=== PATIENT | male | born 1940 | race Caucasian/White ===

== ENCOUNTER 2016-04-23 10:09 | Outpatient (CLI) | payer MEDICARE, BC ==
[2016-04-23 11:28] LABS: ALT (SGPT) Less than 6 U/L (0-55); AST (SGOT) 23 U/L (5-34); Albumin 3.9 g/dL (3.4-4.8); Alkaline Phosphatase 80 U/L (40-150); Anion Gap 14 mmol/L (10-20); BUN (Urea Nitrogen) 19 mg/dL (8.4-25.7); Bilirubin, Direct 0.4 mg/dL (0.1-0.3); Calc. Creatinine Clearance 0 mL/min (70-130); Carbon Dioxide 27 mmol/L (23-31); Chloride 103 mmol/L (98-107); Cholesterol 132 mg/dL (< 200 Desired); Estimated GFR-MDRD 64; Glucose 115 mg/dL (83-110); HDL Cholesterol 44 mg/dL (>60 Neg Risk); LDL Cholesterol, Calculated 73 mg/dL; Potassium 3.8 mmol/L (3.5-5.1); Protein, Total 6.7 g/dL (5.8-8.1); Sodium 140 mmol/L (136-145); Triglycerides 75 mg/dL (Less than 150)
== END 2016-04-23 10:10 ==
LOC: MADLABBHPM 10:09
PROVIDERS: ATTEND Family Medicine
DX: E78.5 Hyperlipidemia, unspecified (principal); I10 Essential (primary) hypertension
CPT/HCPCS: 36415; 80048; 80061; 80076

== ENCOUNTER 2016-07-29 08:41 | Outpatient (CLI) | payer MEDICARE, BC ==
[2016-07-29 09:28] LABS: ALT (SGPT) 14 U/L (0-55); AST (SGOT) 18 U/L (5-34); Albumin 4.2 g/dL (3.4-4.8); Alkaline Phosphatase 100 U/L (40-150); Anion Gap 15 mmol/L (10-20); BUN (Urea Nitrogen) 21 mg/dL (8.4-25.7); Bilirubin, Direct 0.4 mg/dL (0.1-0.3); Bilirubin, Total 1.1 mg/dL (0.2-1.2); Calc. Creatinine Clearance 0 mL/min (70-130); Carbon Dioxide 26 mmol/L (23-31); Cardiac Risk 3.9 (Less than 4.5); Chloride 102 mmol/L (98-107); Cholesterol 162 mg/dL (< 200 Desired); Estimated GFR-MDRD 58; Glucose 120 mg/dL (83-110); HDL Cholesterol 42 mg/dL (>60 Neg Risk); LDL Cholesterol, Calculated 96 mg/dL; Protein, Total 7.3 g/dL (5.8-8.1); Sodium 139 mmol/L (136-145); Triglycerides 119 mg/dL (Less than 150)
== END 2016-07-29 08:42 | disposition home or self-care (01) ==
LOC: MADLABBHPM 08:41
PROVIDERS: ATTEND Family Medicine
DX: I10 Essential (primary) hypertension (principal)
CPT/HCPCS: 36415; 80048; 80061; 80076

== ENCOUNTER 2016-10-01 09:45 | Inpatient (IN) | payer MEDICARE, BC ==
[2016-10-01] MEDS ORDERED: Loperamide HCl 2 MG CAP ONE (10:57)
[2016-10-01 11:25] LABS: ALT (SGPT) Less than 6 U/L (8-55); AST (SGOT) 10 U/L (5-34); Albumin 3.6 g/dL (3.4-4.8); Alkaline Phosphatase 85 U/L (40-150); Anion Gap 13 mmol/L (10-20); BUN (Urea Nitrogen) 22 mg/dL (8.4-25.7); Bilirubin, Total 1.3 mg/dL (0.2-1.2); Calc. Creatinine Clearance 0 mL/min (70-130); Calcium 8.6 mg/dL (7.8-10.44); Carbon Dioxide 26 mmol/L (23-31); Chloride 102 mmol/L (98-107); Estimated GFR-MDRD 71; Globulin 3.1 g/dL (2.4-3.5); Glucose 99 mg/dL (83-110); Potassium 4.3 mmol/L (3.5-5.1); Protein, Total 6.7 g/dL (5.8-8.1); Sodium 137 mmol/L (136-145)
[2016-10-01 11:35] LABS: Band 5 % (5-11); Hemoglobin 15.2 g/dL (14.0-18.0); Lymphocytes 20 % (21-51); MDiff Complete? YES; Mean Corpuscular HGB CONC 32.3 g/dL (32.0-36.0); Mean Corpuscular Hemoglobin 29.1 pg (27.0-31.0); Mean Platelet Volume 7.5 fL (7.4-10.4); Monocytes 8 % (0-10); Neutrophil 67 % (42-75); PLT Morphology Comment Appears Adequate; Platelet Count 136 thou/uL (130-400); RBC Distribution Width 13.2 % (11.5-14.5); Red Blood Cell (RBC) Count 5.22 mill/uL (4.70-6.10); White Blood Cell (WBC) Count 5.5 thou/uL (4.8-10.8)
[2016-10-01 12:00] LABS: Bilirubin Negative (Negative); Blood, Urine Negative (Negative); Clarity Clear (Clear); Glucose, Urine (Dipstick) Negative (Negative); Leukocyte Negative (Negative); Nitrite Negative (Negative); Protein, Urine (Dipstick) 30 mg/dL (Neg-Trace); RBC/HPF 0-3 HPF (0-3); Specific Gravity, Urine 1.025 (1.005-1.030); Squamous Epithelial 0-3 HPF (0-3); Urobilinogen 0.2 mg/dL (0.2-1.0); WBC/HPF 0-3 HPF (0-3)
[2016-10-01 12:01] LABS: Bacteria/HPF Rare-Few HPF (None Seen)
[2016-10-01] MEDS ORDERED: Ondansetron HCl/PF 4 MG/2 ML Vial SLOW IVP PRN (13:09)
[2016-10-01] MEDS ORDERED: Acetaminophen 650 MG Suppository PR PRN (13:09)
[2016-10-01] MEDS ORDERED: Ondansetron ODT 4 MG TAB PO PRN (13:09)
[2016-10-01] MEDS ORDERED: Acetaminophen 325 MG TAB PO PRN (13:11)
[2016-10-01] MEDS: Dextrose 5 % And 0.9 % NaCl 1,000 ML IV SCH ×2 (13:22→21:24)
[2016-10-01 13:59] VITALS: BMI 18.8
[2016-10-01] MEDS: Carbidopa/Levodopa 25-100 mg Tablet PO SCH ×2 (16:45→19:37)
[2016-10-01] MEDS: Terazosin HCl 1 MG CAP PO SCH (20:44)
[2016-10-01] MEDS: Atorvastatin Calcium 10 MG TAB PO SCH (20:44)
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
[2016-10-02 05:28] LABS: Anion Gap 12 mmol/L (10-20); BUN (Urea Nitrogen) 14 mg/dL (8.4-25.7); Calc. Creatinine Clearance 62 mL/min (70-130); Calcium 8.1 mg/dL (7.8-10.44); Carbon Dioxide 24 mmol/L (23-31); Chloride 106 mmol/L (98-107); Estimated GFR-MDRD 84; Glucose 121 mg/dL (83-110); Sodium 138 mmol/L (136-145)
[2016-10-02] MEDS: Enoxaparin Sodium 40 MG/0.4 ML SYRINGE SC SCH (05:34)
[2016-10-02 05:39] LABS: Hemoglobin 14.1 g/dL (14.0-18.0); Mean Corpuscular HGB CONC 33.8 g/dL (32.0-36.0); Mean Corpuscular Hemoglobin 30.4 pg (27.0-31.0); Mean Corpuscular Volume 89.9 fl (80.0-94.0); Mean Platelet Volume 7.7 fL (7.4-10.4); Platelet Count 122 thou/uL (130-400); RBC Distribution Width 13.2 % (11.5-14.5); Red Blood Cell (RBC) Count 4.65 mill/uL (4.70-6.10); White Blood Cell (WBC) Count 4.9 thou/uL (4.8-10.8)
[2016-10-02 05:40] LABS: Manual Diff?? YES
[2016-10-02 05:41] LABS: Eosinophils 1 % (0-10); Lymphocytes 20 % (21-51); Monocytes 3 % (0-10); Reactive Lymphocytes 11 % (0-10)
[2016-10-02 05:43] LABS: Metamyelocyte 1 % (0-0)
[2016-10-02 05:44] LABS: PLT Morphology Comment Appears Decreased; RBC Morphology Normal
[2016-10-02] MEDS: Dextrose 5 % And 0.9 % NaCl 1,000 ML IV SCH (05:48)
[2016-10-02 06:04] LABS: MDiff Complete? YES
[2016-10-02 06:05] LABS: Neutrophil 64 % (42-75)
[2016-10-02] MEDS: Carbidopa/Levodopa 25-100 mg Tablet PO SCH ×5 (06:05→19:27)
[2016-10-02] MEDS ORDERED: Dextrose 5 % And 0.9 % NaCl 1000 ml Bag ONE (06:15)
[2016-10-02] MEDS: Rasagiline Mesylate [Rasagiline Mesylate] 1 MG PO SCH (08:01)
[2016-10-02] MEDS: Aspirin 81 mg Enteric Coated Tablet PO SCH (08:01)
[2016-10-02] MEDS ORDERED: Atorvastatin Calcium 10 MG TAB PO SCH (09:00)
[2016-10-02] MEDS: Sodium Chloride 0.9% 1,000 ML IV SCH (12:35)
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
[2016-10-02] MEDS: Atorvastatin Calcium 10 MG TAB PO SCH (20:25)
[2016-10-02] MEDS: Terazosin HCl 1 MG CAP PO SCH (20:26)
[2016-10-03] MEDS: Sodium Chloride 0.9% 1,000 ML IV SCH (04:57)
[2016-10-03] MEDS: Enoxaparin Sodium 40 MG/0.4 ML SYRINGE SC SCH (04:58)
[2016-10-03 05:20] LABS: Band 1 % (5-11); Eosinophils 2 % (0-10); Hemoglobin 13.6 g/dL (14.0-18.0); Lymphocytes 8 % (21-51); MDiff Complete? YES; Mean Corpuscular HGB CONC 33.2 g/dL (32.0-36.0); Mean Corpuscular Hemoglobin 29.8 pg (27.0-31.0); Mean Corpuscular Volume 89.6 fl (80.0-94.0); Mean Platelet Volume 7.2 fL (7.4-10.4); Monocytes 3 % (0-10); Neutrophil 53 % (42-75); PLT Morphology Comment Appears Adequate; Platelet Count 134 thou/uL (130-400); RBC Distribution Width 13.3 % (11.5-14.5); Reactive Lymphocytes 33 % (0-10); Red Blood Cell (RBC) Count 4.58 mill/uL (4.70-6.10); White Blood Cell (WBC) Count 4.7 thou/uL (4.8-10.8)
[2016-10-03 05:23] LABS: Anion Gap 12 mmol/L (10-20); BUN (Urea Nitrogen) 11 mg/dL (8.4-25.7); Calc. Creatinine Clearance 64 mL/min (70-130); Calcium 8.1 mg/dL (7.8-10.44); Carbon Dioxide 25 mmol/L (23-31); Cardiac Risk 2.7 (Less than 4.5); Chloride 105 mmol/L (98-107); Cholesterol 95 mg/dl (< 200 Desired); Estimated GFR-MDRD 86; Glucose 93 mg/dL (83-110); HDL Cholesterol 35 mg/dL (>60 Neg Risk); LDL Cholesterol, Calculated 45 mg/dL; Potassium 3.8 mmol/L (3.5-5.1); Sodium 138 mmol/L (136-145); Triglycerides 74 mg/dL (Less than 150)
[2016-10-03] MEDS: Carbidopa/Levodopa 25-100 mg Tablet PO SCH ×5 (06:11→19:20)
[2016-10-03] MEDS: Aspirin 81 mg Enteric Coated Tablet PO SCH (08:32)
[2016-10-03] MEDS: Rasagiline Mesylate [Rasagiline Mesylate] 1 MG PO SCH (09:00)
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
[2016-10-03] MEDS ORDERED: Sodium Chloride 0.9% 1,000 ML BAG ONE (10:19)
[2016-10-03] MEDS: Terazosin HCl 1 MG CAP PO SCH (20:41)
[2016-10-03] MEDS: Atorvastatin Calcium 10 MG TAB PO SCH (20:41)
[2016-10-04] MEDS: Enoxaparin Sodium 40 MG/0.4 ML SYRINGE SC SCH (05:22)
[2016-10-04] MEDS: Carbidopa/Levodopa 25-100 mg Tablet PO SCH ×3 (06:15→12:56)
[2016-10-04] MEDS: Aspirin 81 mg Enteric Coated Tablet PO SCH (09:06)
[2016-10-04] MEDS: Rasagiline Mesylate [Rasagiline Mesylate] 1 MG PO SCH (09:07)
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
[2016-10-04 11:47] VITALS: BP 162/76; TEMP 98.7
== END 2016-10-04 12:59 | disposition swing bed (61) | DRG 392 ==
LOC: MADERS 09:45 → MADMS 12:10
PROVIDERS: ADMIT Family Medicine; ATTEND Family Medicine
DX: R19.7 Diarrhea, unspecified (principal); G20 Parkinson's disease; F02.81 Dementia in other diseases classified elsewhere, unspecified severity, with behavioral disturbance; I48.2 Chronic atrial fibrillation; R13.10 Dysphagia, unspecified; E86.0 Dehydration; I10 Essential (primary) hypertension; E78.5 Hyperlipidemia, unspecified; N40.0 Benign prostatic hyperplasia without lower urinary tract symptoms; Z04.71 Encounter for examination and observation following alleged adult physical abuse; Z95.0 Presence of cardiac pacemaker; R53.1 Weakness
CPT/HCPCS: 36415; 80048; 80053; 80061; 81001; 85025; 99285; G8978-GP-CL; G8980-GP-CJ; G8987-GO-CM; G8988-GO-CK; J1650; J7042; J7050

== ENCOUNTER 2016-10-03 10:45 | Inpatient (IN) | payer MEDICARE, BC ==
[2016-10-04] MEDS ORDERED: Acetaminophen 325 MG TAB PO PRN (09:17)
[2016-10-04 13:50] VITALS: BMI 18.8
[2016-10-04] MEDS: Carbidopa/Levodopa 25-100 mg Tablet PO SCH ×3 (15:38→21:32)
[2016-10-04] MEDS: Terazosin HCl 1 MG CAP PO SCH (21:32)
[2016-10-04] MEDS: Atorvastatin Calcium 10 MG TAB PO SCH (21:32)
[2016-10-05] MEDS: Enoxaparin Sodium 40 MG/0.4 ML SYRINGE SC SCH (06:30)
[2016-10-05] MEDS ORDERED: RASAGILINE MESYLATE 1 MG PO SCH (09:00)
[2016-10-05] MEDS: Aspirin 81 mg Enteric Coated Tablet PO SCH (10:07)
[2016-10-05] MEDS: Carbidopa/Levodopa 25-100 mg Tablet PO SCH ×5 (10:08→19:56)
[2016-10-05] MEDS: Rasagiline Mesylate 1 MG PO SCH (10:08)
[2016-10-05] MEDS: Atorvastatin Calcium 10 MG TAB PO SCH (19:56)
[2016-10-05] MEDS: Terazosin HCl 1 MG CAP PO SCH (19:57)
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
[2016-10-06] MEDS: Enoxaparin Sodium 40 MG/0.4 ML SYRINGE SC SCH (05:46)
[2016-10-06] MEDS: Carbidopa/Levodopa 25-100 mg Tablet PO SCH ×5 (07:25→19:43)
[2016-10-06] MEDS: Aspirin 81 mg Enteric Coated Tablet PO SCH (08:57)
[2016-10-06] MEDS: Rasagiline Mesylate 1 MG PO SCH (08:58)
[2016-10-06] MEDS: Terazosin HCl 1 MG CAP PO SCH (21:41)
[2016-10-06] MEDS: Atorvastatin Calcium 10 MG TAB PO SCH (21:41)
[2016-10-07] MEDS: Enoxaparin Sodium 40 MG/0.4 ML SYRINGE SC SCH (05:46)
[2016-10-07] MEDS: Carbidopa/Levodopa 25-100 mg Tablet PO SCH ×5 (07:39→20:11)
[2016-10-07] MEDS: Rasagiline Mesylate 1 MG PO SCH (08:44)
[2016-10-07] MEDS: Aspirin 81 mg Enteric Coated Tablet PO SCH (08:44)
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
[2016-10-07] MEDS: Terazosin HCl 1 MG CAP PO SCH (20:11)
[2016-10-07] MEDS: Atorvastatin Calcium 10 MG TAB PO SCH (20:11)
[2016-10-08] MEDS: Enoxaparin Sodium 40 MG/0.4 ML SYRINGE SC SCH (06:09)
[2016-10-08] MEDS: Carbidopa/Levodopa 25-100 mg Tablet PO SCH ×5 (08:00→20:11)
[2016-10-08] MEDS: Aspirin 81 mg Enteric Coated Tablet PO SCH (08:00)
[2016-10-08] MEDS: Rasagiline Mesylate 1 MG PO SCH (08:01)
[2016-10-08] MEDS: Atorvastatin Calcium 10 MG TAB PO SCH (21:18)
[2016-10-08] MEDS: Terazosin HCl 1 MG CAP PO SCH (21:18)
[2016-10-08] MEDS ORDERED: Bisacodyl 10 MG SUPP PR PRN (21:25)
[2016-10-08] MEDS ORDERED: Polyethylene Glycol 3350 17 GM Packet PO SCH (22:15)
[2016-10-09] MEDS: Enoxaparin Sodium 40 MG/0.4 ML SYRINGE SC SCH (05:30)
[2016-10-09] MEDS: Carbidopa/Levodopa 25-100 mg Tablet PO SCH ×5 (08:11→19:14)
[2016-10-09] MEDS: Aspirin 81 mg Enteric Coated Tablet PO SCH (08:11)
[2016-10-09] MEDS: Rasagiline Mesylate 1 MG PO SCH (08:11)
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
[2016-10-09] MEDS: Polyethylene Glycol 3350 17 GM Packet PO SCH (11:58)
[2016-10-09] MEDS: Atorvastatin Calcium 10 MG TAB PO SCH (21:01)
[2016-10-09] MEDS: Terazosin HCl 1 MG CAP PO SCH (21:03)
[2016-10-10] MEDS: Enoxaparin Sodium 40 MG/0.4 ML SYRINGE SC SCH (06:15)
[2016-10-10] MEDS: Carbidopa/Levodopa 25-100 mg Tablet PO SCH ×5 (07:28→19:18)
[2016-10-10] MEDS: Aspirin 81 mg Enteric Coated Tablet PO SCH (08:53)
[2016-10-10] MEDS: Polyethylene Glycol 3350 17 GM Packet PO SCH (08:53)
[2016-10-10] MEDS: Rasagiline Mesylate 1 MG PO SCH (08:54)
[2016-10-10] MEDS: Terazosin HCl 1 MG CAP PO SCH (21:01)
[2016-10-10] MEDS: Atorvastatin Calcium 10 MG TAB PO SCH (21:01)
[2016-10-11] MEDS: Carbidopa/Levodopa 25-100 mg Tablet PO SCH ×3 (06:12→13:34)
[2016-10-11] MEDS: Enoxaparin Sodium 40 MG/0.4 ML SYRINGE SC SCH (06:13)
[2016-10-11] MEDS: Aspirin 81 mg Enteric Coated Tablet PO SCH (08:19)
[2016-10-11] MEDS: Polyethylene Glycol 3350 17 GM Packet PO SCH (08:22)
[2016-10-11] MEDS: Rasagiline Mesylate 1 MG PO SCH (08:22)
[2016-10-11 08:46] VITALS: BP 136/80; TEMP 96.9
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
== END 2016-10-11 12:50 | disposition home health service (06) | DRG 948 ==
LOC: MADMS 10-04 13:05
PROVIDERS: ADMIT Family Medicine; ATTEND Family Medicine
DX: R53.1 Weakness (principal); F02.81 Dementia in other diseases classified elsewhere, unspecified severity, with behavioral disturbance; G20 Parkinson's disease; R44.2 Other hallucinations; I10 Essential (primary) hypertension; R13.10 Dysphagia, unspecified; N40.0 Benign prostatic hyperplasia without lower urinary tract symptoms; E78.5 Hyperlipidemia, unspecified; I48.2 Chronic atrial fibrillation; Z95.0 Presence of cardiac pacemaker; K59.00 Constipation, unspecified
CPT/HCPCS: G8978-GP-CM; G8979-GP-CJ; G8996-GN-CK; G8997-GN-CK; J1650

== ENCOUNTER 2017-05-10 16:52 | Emergency (ER) | payer MEDICARE, BC ==
[~2017-05-10 16:52] MED LIST: Sodium Chloride 0.9% 1,000 ML BAG ONE
--- NOTE | 2017-05-10 18:55 | RAD ---
PORTABLE SUPINE CHEST: 05/10/17 HISTORY: Fever. COMPARISON: 09/07/15. Lungs appear well aerated. No evidence of focal infiltrate or significant effusion. Heart is mildly e nlarged and there is mild vascular engorgement which appears stable. The single lead pacemaker device is unchanged. IMPRESSION: No acute finding or interval change. POS: [facility]
[2017-05-10 19:12] LABS: Bilirubin Negative (Negative); Blood, Urine Moderate (Negative); Clarity Cloudy (Clear); Glucose, Urine (Dipstick) Negative (Negative); Leukocyte Negative (Negative); Nitrite Positive (Negative); Protein, Urine (Dipstick) 100 mg/dL (Neg-Trace); pH, Urine 5.5 (5.0-9.0)
[2017-05-10 19:13] LABS: #Lymphocytes 0.2 thou/uL (1.20-3.40); #Monocytes 0.1 thou/uL (0.11-0.59); #Neutrophils 9.3 thou/uL (1.40-6.50); %Basophils 0.3 % (0.0-1.0); %Eosinophils 0.1 % (0.0-10.0); %Lymphocytes 2.3 % (21.0-51.0); %Monocytes 1.2 % (0.0-10.0); %Neutrophils 96.1 % (42.0-75.0); Hemoglobin 14.8 g/dL (14.0-18.0); Mean Corpuscular HGB CONC 32.9 g/dL (32.0-36.0); Mean Corpuscular Hemoglobin 30.3 pg (27.0-31.0); Mean Corpuscular Volume 91.9 fl (80.0-94.0); Mean Platelet Volume 6.4 fL (7.4-10.4); Platelet Count 160 thou/uL (130-400); RBC Distribution Width 12.8 % (11.5-14.5); Red Blood Cell (RBC) Count 4.89 mill/uL (4.70-6.10); White Blood Cell (WBC) Count 9.7 thou/uL (4.8-10.8)
[2017-05-10 19:22] LABS: Bacteria/HPF 2+ HPF (None Seen); Crystals/HPF 3+ AMORPH URATES HPF (Negative); RBC/HPF 0-3 HPF (0-3); Squamous Epithelial 0-3 HPF (0-3)
[2017-05-10 19:22] LABS: ALT (SGPT) Less than 7 U/L (8-55); AST (SGOT) 14 U/L (5-34); Albumin 3.8 g/dL (3.4-4.8); Alkaline Phosphatase 85 U/L (40-150); Anion Gap 17 mmol/L (10-20); BUN (Urea Nitrogen) 24 mg/dL (8.4-25.7); Bilirubin, Total 2.6 mg/dL (0.2-1.2); CK (CPK) 50 U/L (30-200); Calc. Creatinine Clearance 0 mL/min (70-130); Calcium 8.8 mg/dL (7.8-10.44); Carbon Dioxide 22 mmol/L (23-31); Chloride 104 mmol/L (98-107); Estimated GFR-MDRD 56; Globulin 3.1 g/dL (2.4-3.5); Glucose 166 mg/dL (83-110); Potassium 4.5 mmol/L (3.5-5.1); Protein, Total 6.9 g/dL (5.8-8.1); Sodium 138 mmol/L (136-145)
[2017-05-10 19:24] LABS: CKMB 0.6 ng/mL (0-6.6); Troponin I Less than 0.010 ng/mL (< 0.028)
== END 2017-05-10 21:49 | disposition short-term general hospital (02) ==
LOC: MADERS 16:52
DX: G21.11 Neuroleptic induced parkinsonism (principal); F03.90 Unspecified dementia, unspecified severity, without behavioral disturbance, psychotic disturbance, mood disturbance, and anxiety; I95.89 Other hypotension; I48.91 Unspecified atrial fibrillation; Z95.0 Presence of cardiac pacemaker; N39.0 Urinary tract infection, site not specified; I10 Essential (primary) hypertension; Z79.899 Other long term (current) drug therapy; Z79.82 Long term (current) use of aspirin
CPT/HCPCS: 36415; 51701; 71045; 80053; 81001; 82553; 83605; 83880; 84484; 85025; 87040; 87077; 87081; 87086; 87149; 87186; 87430; 87804; 93005; 96360; J7050

== ENCOUNTER 2017-05-25 04:20 | Emergency (ER) | payer MEDICARE, BC ==
[2017-05-25 05:11] LABS: #Basophils 0.1 thou/uL (0.0-0.2); #Eosinphils 0.1 thou/uL (0.0-0.7); #Monocytes 0.6 thou/uL (0.11-0.59); #Neutrophils 6.1 thou/uL (1.40-6.50); %Basophils 0.9 % (0.0-1.0); %Eosinophils 1.6 % (0.0-10.0); %Lymphocytes 12.6 % (21.0-51.0); %Monocytes 7.2 % (0.0-10.0); %Neutrophils 77.7 % (42.0-75.0); Hemoglobin 14.6 g/dL (14.0-18.0); Mean Corpuscular HGB CONC 32.8 g/dL (32.0-36.0); Mean Corpuscular Hemoglobin 30.3 pg (27.0-31.0); Mean Corpuscular Volume 92.5 fl (80.0-94.0); Mean Platelet Volume 6.1 fL (7.4-10.4); Platelet Count 344 thou/uL (130-400); RBC Distribution Width 13.3 % (11.5-14.5); Red Blood Cell (RBC) Count 4.81 mill/uL (4.70-6.10); White Blood Cell (WBC) Count 7.8 thou/uL (4.8-10.8)
[2017-05-25 05:27] LABS: Bilirubin Negative (Negative); Blood, Urine Moderate (Negative); Clarity Clear (Clear); Glucose, Urine (Dipstick) Negative (Negative); Leukocyte Negative (Negative); Nitrite Negative (Negative); Protein, Urine (Dipstick) Trace mg/dL (Neg-Trace); Specific Gravity, Urine 1.015 (1.005-1.030); Urobilinogen 0.2 mg/dL (0.2-1.0)
[2017-05-25 05:32] LABS: ALT (SGPT) 12 U/L (8-55); AST (SGOT) 47 U/L (5-34); Albumin 3.1 g/dL (3.4-4.8); Alkaline Phosphatase 70 U/L (40-150); Anion Gap 13 mmol/L (10-20); BUN (Urea Nitrogen) 8 mg/dL (8.4-25.7); Bacteria/HPF None Seen HPF (None Seen); Bilirubin, Total 0.7 mg/dL (0.2-1.2); Calc. Creatinine Clearance 0 mL/min (70-130); Calcium 7.9 mg/dL (7.8-10.44); Carbon Dioxide 29 mmol/L (23-31); Chloride 102 mmol/L (98-107); Estimated GFR-MDRD Greater than 90; Globulin 2.9 g/dL (2.4-3.5); Glucose 104 mg/dL (83-110); Potassium 3.5 mmol/L (3.5-5.1); Sodium 140 mmol/L (136-145); Squamous Epithelial 0-3 HPF (0-3)
[2017-05-25 05:46] LABS: CKMB 2.3 ng/mL (0-6.6); Troponin I Less than 0.010 ng/mL (< 0.028)
--- NOTE | 2017-05-25 09:49 | RAD ---
CHEST 1 VIEW: HISTORY: Altered mental status. COMPARISON: 05/10/17. FINDINGS: Cardiac silhouette is magnified and enlarged. Pulmonary vasculature is upper limits of normal. The patient is rotated leftward. Left subclavian cardiac electronic device and aortic calcification are again demonstrated. IMPRESSION: 1. Cardiomegaly. No florid edema. 2. Sclerosis. POS: [facility]
== END 2017-05-25 06:35 ==
LOC: MADERS 04:20
DX: F03.90 Unspecified dementia, unspecified severity, without behavioral disturbance, psychotic disturbance, mood disturbance, and anxiety (principal); N39.0 Urinary tract infection, site not specified; I48.91 Unspecified atrial fibrillation; I10 Essential (primary) hypertension; Z79.82 Long term (current) use of aspirin; Z79.899 Other long term (current) drug therapy
CPT/HCPCS: 71045; 80053; 81003; 81015; 82553; 84484; 85025

== ENCOUNTER 2017-06-02 16:51 | Emergency (ER) | payer MEDICARE, BC ==
[2017-06-02 17:48] LABS: #Basophils 0.1 thou/uL (0.0-0.2); #Monocytes 0.9 thou/uL (0.11-0.59); #Neutrophils 17.1 thou/uL (1.40-6.50); %Basophils 0.3 % (0.0-1.0); %Monocytes 4.5 % (0.0-10.0); %Neutrophils 90.1 % (42.0-75.0); Hemoglobin 13.7 g/dL (14.0-18.0); Mean Corpuscular HGB CONC 31.8 g/dL (32.0-36.0); Mean Corpuscular Volume 94.2 fl (80.0-94.0); Mean Platelet Volume 6.3 fL (7.4-10.4); Platelet Count 276 thou/uL (130-400); RBC Distribution Width 13.9 % (11.5-14.5); Red Blood Cell (RBC) Count 4.57 mill/uL (4.70-6.10); White Blood Cell (WBC) Count 18.9 thou/uL (4.8-10.8)
[2017-06-02 18:02] LABS: ALT (SGPT) Less than 7 U/L (8-55); AST (SGOT) 16 U/L (5-34); Albumin 3.3 g/dL (3.4-4.8); Alkaline Phosphatase 71 U/L (40-150); Anion Gap 16 mmol/L (10-20); BUN (Urea Nitrogen) 16 mg/dL (8.4-25.7); Bilirubin, Total 1.6 mg/dL (0.2-1.2); Calc. Creatinine Clearance 0 mL/min (70-130); Calcium 8.4 mg/dL (7.8-10.44); Carbon Dioxide 24 mmol/L (23-31); Chloride 101 mmol/L (98-107); Estimated GFR-MDRD 66; Globulin 3.1 g/dL (2.4-3.5); Glucose 126 mg/dL (83-110); Potassium 4.4 mmol/L (3.5-5.1); Protein, Total 6.4 g/dL (5.8-8.1); Sodium 137 mmol/L (136-145)
[2017-06-02] MEDS ORDERED: Acetaminophen 500 MG TAB ONE (18:10)
--- NOTE | 2017-06-02 18:30 | RAD ---
PORTABLE AP CHEST RADIOGRAPH: Date: 06-02-17 History: Fever. Comparison: 05-25-17 FINDINGS: Single lead left subclavian cardiac pacemaking device is noted in place. The cardiac silhouette is ma gnified by projection. Pulmonary vasculature is within normal limits. The lungs are clear. Vascular c alcifications are seen in the thoracic aorta. Given differences in technique, there has been no signi ficant interval change when compared to the prior exam. IMPRESSION: No acute cardiopulmonary process. POS: [facility]
[2017-06-02 19:39] LABS: Bilirubin Small (Negative); Blood, Urine Small (Negative); Clarity Slightly Cloudy (Clear); Glucose, Urine (Dipstick) Negative (Negative); Leukocyte Negative (Negative); Nitrite Negative (Negative); Protein, Urine (Dipstick) 100 mg/dL (Neg-Trace); Specific Gravity, Urine 1.015 (1.005-1.030); Urobilinogen 0.2 mg/dL (0.2-1.0); pH, Urine 5.5 (5.0-9.0)
[2017-06-02 19:43] LABS: Bacteria/HPF 2+ HPF (None Seen); Crystals/HPF 1+ AMORPH URATES HPF (Negative); WBC/HPF 0-3 HPF (0-3)
== END 2017-06-02 20:04 | disposition short-term general hospital (02) ==
LOC: MADERS 16:51
DX: A41.9 Sepsis, unspecified organism (principal); A09 Infectious gastroenteritis and colitis, unspecified; I48.91 Unspecified atrial fibrillation; I10 Essential (primary) hypertension; G20 Parkinson's disease; F02.80 Dementia in other diseases classified elsewhere, unspecified severity, without behavioral disturbance, psychotic disturbance, mood disturbance, and anxiety; Z79.899 Other long term (current) drug therapy
CPT/HCPCS: 36415; 71045; 80053; 81003; 81015; 83605; 85025; 87040; 87086; 96365; 96366; J3370; J7050

== ENCOUNTER 2017-06-20 18:12 | Inpatient (IN) | payer MEDICARE, BC ==
[2017-06-20] MEDS ORDERED: Carbidopa/Levodopa CR 50-200 mg Tablet PO SCH (21:30)
--- NOTE | 2017-06-21 00:41 | HP ---
Admitted to [facility] to extended care on 06/20/2017 CHIEF COMPLAINT: Severe weakness. PRESENT ILLNESS: The patient is a frail 77-year-old white male, who has a history of Parkinson's dis ease diagnosed initially in 2001, complicated by dementia, dysphagia, and weakness. He also has hype rtension, chronic atrial fibrillation. The patient is not a candidate for any anticoagulants due to a fall risk. He also has a pacemaker. The patient had been living at home with his serving as his primary caregiver. The patient required some assistance with his ADLs and assistance with all [facility] instrumental ADLs. The patient became acutely ill requiring hospitalization at [facility] from 05/10/2017 to 05/22/2017 presenting with altered mental status and septic s hock from a urinary tract infection. This was complicated by a left ureteral stone with hydronephros is and hydroureter. The patient underwent an emergent placement of a percutaneous nephrostomy tube. Later, his urologist, Dr. Mcgill, did a left ureteroscopic stone basket extraction and removal of [facility] percutaneous nephrostomy, and inserted a left double-J ureteral stent. His urine grew group B stre p and Enterococcus. He also had a fecal impaction with possible proctitis, for which he was treated with Flagyl. The patient had a right internal jugular catheter and was discharged to [facility] on 05/22/2017 on IV ampicillin and Flagyl. The patient completed approximately 3 days of the se 2 antibiotics and then pulled out his internal jugular catheter. His 5-day course of Flagyl and a moxicillin was completed by oral route. He underwent physical therapy and made good progress. He wa s eating well, was able to get up and walk just a few steps. The patient then again became acutely i ll with altered mental status and diarrhea, prompting a re-admission to [facility] from 06/02/2017 to 06/06/2017 and was found to have a C. difficile colitis. The patient w as started on vancomycin 125 mg p.o. q.i.d. The patient's condition stabilized and he improved, such that he was discharged on 06/06/2017. His condition deteriorated and he required re-admission to [facility] on 06/13/2017 with altered mental status and remained [facility] at [facility] 06/20/2017. He underwent a CT scan of the brain that showed no acute changes. He had complicat ions and lack of improvement from the C. difficile colitis. The patient was given support and comple nessa a 14-day course of vancomycin 125 mg q.i.d. that was started on 06/06/2017. The diarrhea resolve d. He also had a large fecal impaction that was removed with endoscopy. His condition stabilized, b ut he was left in a very weakened state. The patient was bed confined due to his weakness throughout this admission. He had periods where he was a little more alert and then periods where he was more withdrawn and had no interaction. Much of this was felt to be secondary to his Parkinson's disease a nd Parkinson's dementia. His condition stabilized. Palliative care visited with him several times. His said that he is a DNR, but was supposed to transitioning to hospice care. The patient's co ndition was such that his could not manage him at home and was opted to move him to [facility] in an effort to see with maximum support if his condition would improve and functi onal capabilities improve. The patient was seen in his hospital room soon after his admission. The patient could not give me an y information. I have reviewed the records from [facility]. I have also visited with his , Mary, and his son, Balwinder. They said the patient has been very weak. He has not gotten up out o f bed. He has a condom catheter. He has been on a pureed diet. PAST MEDICAL HISTORY: See record of these 3 hospitalizations in the present illness, Parkinson's dis ease diagnosed in 2001 complicated by Parkinson's dementia, dysphagia, weakness, and increased fall p otential. The patient has chronic atrial fibrillation, is not a candidate for any chronic anticoagul ation due to his falls. He has a pacemaker. The battery has been replaced on 05/05/2015. The patie nt has chronic problems with constipation, has hypertension, BPH. PAST SURGICAL HISTORY: The patient has had a pacemaker insertion for bradycardia, battery replaced o n 05/05/2015. He has had a colonoscopy in the that was normal. Hospitalized for urinary tract infection and aspiration pneumonia in 10/2014. Hospitalized in 08/2015 for sepsis from UTI. PRESENT MEDICINES: Aspirin 81 mg; Sinemet CR 5 times a day, 1 tablet at 7:00 a.m., 10:00 a.m., 1:00 p.m., 4:00 p.m., and 7:00 p.m.; rasagiline 1 mg daily, lactobacillus rhamnosus GG 1 cap daily, Senoko t-S tablet 1 daily, MiraLax 17 grams in 8 ounces of water daily, tamsulosin 0.4 mg daily, finasteride 5 mg daily, atorvastatin 10 mg daily. ALLERGIES: TETANUS VACCINE and TOXOID. REVIEW OF SYSTEMS: The patient is not able to go through review of system. In visiting with the jony franco, the patient has been at bedrest since his hospitalization. He has a condom catheter. He is on a pureed diet. Neuropsychiatric: The patient is very lethargic much of the time and seems very apat hetic, and just seems to stare out and not be responsive to verbal or tactile stimuli. Other times, he is more interactive. HABITS: Alcohol none. Tobacco none. SOCIAL HISTORY: The patient is and had been living with his before this initial hospita lization on 05/10/2017. CODE STATUS: DNR. PHYSICAL EXAMINATION: GENERAL: Shows a very weak, frail, asthenic-built, 77-year-old white male who is awake. He seemed t o recognize me and reached out to shake my hand. He was not able to really talk to me. VITAL SIGNS: Shows a temperature of 98, pulse 82, respirations 18, O2 sat 96% on room air, blood pre ssure 120/60. His weight is 123. HEAD: Normocephalic and atraumatic. EYES: Pupils are equal, round, and reactive. Sclerae nonicteric. EARS: TMs are blocked by some cerumen. NOSE: Normal. MOUTH AND THROAT: Mucous membranes are moist. LUNGS: Clear. HEART: Has a regular rate, probably paced rhythm. The patient has pacemaker up in the left upper an terior chest. ABDOMEN: Soft, nontender. The patient has a condom catheter on. EXTREMITIES: No edema. NEUROLOGIC: The patient is alert, not talkative. His movements are very stiff and there is cogwheel rigidity. There are some tremors of the hands at rest. IMPRESSION: 1. Severe weakness. A. Presently bed confined. B. Etiology, secondary to repeated hospitalizations. C. Also secondary to recent Clostridium difficile colitis. 2. Recent multiple hospitalizations at [facility]. A. 05/10/2017 until 05/22/2017 for septic shock from urinary tract infection with a left ureteral st one causing a hydroureter and hydronephrosis requiring emergent percutaneous nephrostomy tube and ure teroscopic stone basket extraction. B. Hospitalized from 06/02/2017 until 06/06/2017 for Clostridium difficile colitis. C. Hospitalized at [facility] from 06/13/2017 until 06/20/2017 for Clostridium difficile c olitis and altered mental status. 3. Advanced Parkinson's disease. A. Complicated by Parkinson's dementia. B. Complicated by dysphagia. C. Complicated by severe weakness. D. Complicated by high fall risk. 4. Hypertension. 5. Chronic atrial fibrillation. A. Rate controlled. B. Status post pacemaker placement. 6. Constipation. 7. Code status: DNR. 8. Benign prostatic hypertrophy. 9. Recent Clostridium difficile colitis. A. Treated with 10-day course of vancomycin 125 mg q.i.d. beginning on 06/06/2017 and completing on 06/19/2017. PLAN: The patient has been admitted to [facility] for the purpose of offering [facility] supportive care. Physical therapy and OT will try to progress the patient up into a chair and then try to progress him from there due to his capability. The patient has completed a 10-day course of vancomycin for his Clostridium difficile colitis that has resolved. See orders. CODE STATUS: DNR.
[2017-06-21 05:07] LABS: #Basophils 0.1 thou/uL (0.0-0.2); #Eosinphils 0.1 thou/uL (0.0-0.7); #Lymphocytes 1.8 thou/uL (1.20-3.40); #Monocytes 0.5 thou/uL (0.11-0.59); #Neutrophils 6.5 thou/uL (1.40-6.50); %Basophils 0.8 % (0.0-1.0); %Lymphocytes 19.9 % (21.0-51.0); %Monocytes 5.4 % (0.0-10.0); %Neutrophils 72.8 % (42.0-75.0); Hemoglobin 14.1 g/dL (14.0-18.0); Mean Corpuscular HGB CONC 33.1 g/dL (32.0-36.0); Mean Corpuscular Hemoglobin 30.3 pg (27.0-31.0); Mean Corpuscular Volume 91.5 fl (80.0-94.0); Mean Platelet Volume 6.2 fL (7.4-10.4); Platelet Count 164 thou/uL (130-400); RBC Distribution Width 13.1 % (11.5-14.5); Red Blood Cell (RBC) Count 4.65 mill/uL (4.70-6.10); White Blood Cell (WBC) Count 8.9 thou/uL (4.8-10.8)
[2017-06-21 05:22] LABS: ALT (SGPT) Less than 7 U/L (8-55); AST (SGOT) 18 U/L (5-34); Albumin 3.2 g/dL (3.4-4.8); Alkaline Phosphatase 64 U/L (40-150); Anion Gap 15 mmol/L (10-20); BUN (Urea Nitrogen) 8 mg/dL (8.4-25.7); Bilirubin, Total 1.1 mg/dL (0.2-1.2); Calc. Creatinine Clearance 66 mL/min (70-130); Calcium 8.4 mg/dL (7.8-10.44); Carbon Dioxide 25 mmol/L (23-31); Chloride 102 mmol/L (98-107); Estimated GFR-MDRD Greater than 90; Globulin 2.8 g/dL (2.4-3.5); Glucose 91 mg/dL (83-110); Potassium 3.6 mmol/L (3.5-5.1); Sodium 138 mmol/L (136-145)
[2017-06-21] MEDS: Carbidopa/Levodopa CR 50-200 mg Tablet PO SCH ×5 (06:08→18:35)
[2017-06-21] MEDS: Polyethylene Glycol 3350 17 GM Packet PO SCH (09:55)
[2017-06-21] MEDS: Atorvastatin Calcium 10 MG TAB PO SCH (09:55)
[2017-06-21] MEDS: Tamsulosin HCl 0.4 MG CAP PO SCH (09:55)
[2017-06-21] MEDS: Senokot S 8.6-50 MG TAB PO SCH (09:55)
[2017-06-21] MEDS: Floranex Packet PO SCH (09:55)
[2017-06-21] MEDS: Finasteride 5 MG TAB PO SCH (09:55)
[2017-06-21] MEDS: RASAGILINE MESYLATE 1 MG PO SCH (09:56)
[2017-06-22] MEDS: Carbidopa/Levodopa CR 50-200 mg Tablet PO SCH ×5 (05:56→18:35)
[2017-06-22] MEDS: Floranex Packet PO SCH (08:23)
[2017-06-22] MEDS: Atorvastatin Calcium 10 MG TAB PO SCH (08:24)
[2017-06-22] MEDS: Finasteride 5 MG TAB PO SCH (08:24)
[2017-06-22] MEDS: RASAGILINE MESYLATE 1 MG PO SCH (08:24)
[2017-06-22] MEDS: Tamsulosin HCl 0.4 MG CAP PO SCH (08:24)
[2017-06-22] MEDS: Polyethylene Glycol 3350 17 GM Packet PO SCH (08:25)
[2017-06-22] MEDS: Senokot S 8.6-50 MG TAB PO SCH (08:25)
[2017-06-23] MEDS: Carbidopa/Levodopa CR 50-200 mg Tablet PO SCH ×5 (06:01→19:15)
[2017-06-23] MEDS: Senokot S 8.6-50 MG TAB PO SCH (09:12)
[2017-06-23] MEDS: Tamsulosin HCl 0.4 MG CAP PO SCH (09:12)
[2017-06-23] MEDS: Floranex Packet PO SCH (09:12)
[2017-06-23] MEDS: Atorvastatin Calcium 10 MG TAB PO SCH (09:12)
[2017-06-23] MEDS: Finasteride 5 MG TAB PO SCH (09:12)
[2017-06-23] MEDS: RASAGILINE MESYLATE 1 MG PO SCH (09:13)
[2017-06-23] MEDS: Polyethylene Glycol 3350 17 GM Packet PO SCH (09:13)
--- NOTE | 2017-06-23 09:19 | PRG ---
DATE OF SERVICE: 06/23/2017 SUBJECTIVE: The patient was very alert, sitting up in bed this morning, talking a little bit, but vasquez rd to understand. The nurses said the patient is doing much better. OBJECTIVE: GENERAL: The patient is sitting up in bed. He is alert, looking around, talking some, but hard to u nderstand. He looks very good this morning. He looks far better than when he was admitted and appea rs in no distress. VITAL SIGNS: Shows temperature of 96.9, pulse 81, respirations 18, O2 sat 99% on room air, blood pre ssure 129/69. LUNGS: Clear. HEART: Regular rate. EXTREMITIES: No edema. LABORATORY DATA: His laboratory taken on 06/21/2017 showed hemoglobin and hematocrit of 14.1 and 42. 5, white cell count 8,900 with 73% segs, 20% lymphocytes, platelet count of 164,000. Sodium 138, pot assium 3.6, BUN 8, creatinine 0.73, GFR greater than 90, glucose 81. ASSESSMENT: 1. Severe weakness. A. Presently bed confined. B. Etiology, secondary to repeated hospitalizations. C. Also secondary to recent Clostridium difficile colitis. D. Improvement in bed mobility as of 06/23/2017. Remaining diagnoses are the same. 2. Recent multiple hospitalizations at [facility]. A. 05/10/2017 until 05/22/2017 for septic shock from urinary tract infection with a left ureteral st one causing a hydroureter and hydronephrosis requiring emergent percutaneous nephrostomy tube and ure teroscopic stone basket extraction. B. Hospitalized from 06/02/2017 until 06/06/2017 for Clostridium difficile colitis. C. Hospitalized at [facility] from 06/13/2017 until 06/20/2017 for Clostridium difficile c olitis and altered mental status. 3. Advanced Parkinson's disease. A. Complicated by Parkinson's dementia. B. Complicated by dysphagia. C. Complicated by severe weakness. D. Complicated by high fall risk. 4. Hypertension. 5. Chronic atrial fibrillation. A. Rate controlled. B. Status post pacemaker placement. 6. Constipation. 7. Code status: DNR. 8. Benign prostatic hypertrophy. 9. Recent Clostridium difficile colitis. A. Treated with 10-day course of vancomycin 125 mg q.i.d. beginning on 06/06/2017 and completing on 06/19/2017. PLAN: Patient looks much better. He is more mobile in bed. Physical therapy and OT will be working with him and he should be able to be advanced up into a bed. He still has indwelling Sewell catheter .
[2017-06-24] MEDS: Carbidopa/Levodopa CR 50-200 mg Tablet PO SCH ×5 (06:02→18:23)
--- NOTE | 2017-06-24 08:58 | PRG ---
DATE OF SERVICE: 06/24/2017 SUBJECTIVE: Nurses report no problems. The patient sat up in a Dayan chair some yesterday. He is sl eeping this morning. OBJECTIVE: The patient lying in bed sleeping, appears very comfortable and in no distress. His marii l signs show a temperature 97.9, pulse 79, respirations 16, O2 sat 98% on room air, blood pressure 11 0/61. Lungs are clear. Heart, regular rate. Abdomen is soft. Extremities; no edema, no areas of t enderness. FBS Yesterday morning 107. ASSESSMENT: 1. Severe weakness. A. Presently bed confined. B. Etiology, secondary to repeated hospitalizations. C. Also secondary to recent Clostridium difficile colitis. D. Improved. Now tolerating sitting up in a Dayan chair as of 06/24/2017. 2. Recent multiple hospitalizations at [facility]. A. 05/10/2017 until 05/22/2017 for septic shock from urinary tract infection with a left uretera l stone causing a hydroureter and hydronephrosis requiring emergent percutaneous nephrostomy tu be and ureteroscopic stone basket extraction. B. Hospitalized from 06/02/2017 until 06/06/2017 for Clostridium difficile colitis. C. Hospitalized at [facility] from 06/13/2017 until 06/20/2017 for Clostridium diffici le colitis and altered mental status. 3. Advanced Parkinson's disease. A. Complicated by Parkinson's dementia. B. Complicated by dysphagia. C. Complicated by severe weakness. D. Complicated by high fall risk. 4. Hypertension. 5. Chronic atrial fibrillation. A. Rate controlled. B. Status post pacemaker placement. 6. Constipation. 7. Code status: DNR. 8. Benign prostatic hypertrophy. 9. Recent Clostridium difficile colitis. A. Treated with 10-day course of vancomycin 125 mg q.i.d. beginning on 06/06/2017 and completing on 06/19/2017. PLAN: Continue present care. Continue physical therapy.
[2017-06-24] MEDS: Senokot S 8.6-50 MG TAB PO SCH (09:34)
[2017-06-24] MEDS: Floranex Packet PO SCH (09:34)
[2017-06-24] MEDS: Atorvastatin Calcium 10 MG TAB PO SCH (09:34)
[2017-06-24] MEDS: Finasteride 5 MG TAB PO SCH (09:34)
[2017-06-24] MEDS: Polyethylene Glycol 3350 17 GM Packet PO SCH (09:34)
[2017-06-24] MEDS: RASAGILINE MESYLATE 1 MG PO SCH (09:34)
[2017-06-24] MEDS: Tamsulosin HCl 0.4 MG CAP PO SCH (09:34)
[2017-06-25] MEDS: Carbidopa/Levodopa CR 50-200 mg Tablet PO SCH ×5 (08:16→18:23)
[2017-06-25] MEDS: Floranex Packet PO SCH (08:17)
[2017-06-25] MEDS: Finasteride 5 MG TAB PO SCH (08:17)
[2017-06-25] MEDS: RASAGILINE MESYLATE 1 MG PO SCH (08:17)
[2017-06-25] MEDS: Atorvastatin Calcium 10 MG TAB PO SCH (08:17)
[2017-06-25] MEDS: Tamsulosin HCl 0.4 MG CAP PO SCH (08:18)
[2017-06-25] MEDS: Senokot S 8.6-50 MG TAB PO SCH (08:18)
[2017-06-25] MEDS: Polyethylene Glycol 3350 17 GM Packet PO SCH (08:18)
[2017-06-26] MEDS: Carbidopa/Levodopa CR 50-200 mg Tablet PO SCH ×5 (06:01→18:53)
--- NOTE | 2017-06-26 08:52 | PRG ---
DATE OF SERVICE: 06/26/2017 SUBJECTIVE: Nurses report no problems. The patient has no complaints. OBJECTIVE: The patient is sitting up in a Dayan chair. He is alert, he spoke to me a little bit, but a little hard to understand. His arm movements were much easier, he reached up and shook my hand w ith no difficulty. His vital signs show a temperature of 97.4, pulse 80, respirations 18, O2 sat 97% on room air, blood pressure 137/68. Lungs are clear. Heart, regular rate. ASSESSMENT: 1. Severe weakness. A. Presently bed confined. B. Etiology, secondary to repeated hospitalizations. C. Also secondary to recent Clostridium difficile colitis. D. Improved. Sitting up in a Dayan chair. Overall, strength improved as of 06/26/2017. 2. Recent multiple hospitalizations at [facility]. A. 05/10/2017 until 05/22/2017 for septic shock from urinary tract infection with a left uretera l stone causing a hydroureter and hydronephrosis requiring emergent percutaneous nephrostomy tu be and ureteroscopic stone basket extraction. B. Hospitalized from 06/02/2017 until 06/06/2017 for Clostridium difficile colitis. C. Hospitalized at [facility] from 06/13/2017 until 06/20/2017 for Clostridium diffici le colitis and altered mental status. 3. Advanced Parkinson's disease. A. Complicated by Parkinson's dementia. B. Complicated by dysphagia. C. Complicated by severe weakness. D. Complicated by high fall risk. 4. Hypertension. 5. Chronic atrial fibrillation. A. Rate controlled. B. Status post pacemaker placement. 6. Constipation. 7. Code status: DNR. 8. Benign prostatic hypertrophy. 9. Recent Clostridium difficile colitis. A. Treated with 10-day course of vancomycin 125 mg q.i.d. beginning on 06/06/2017 and completing on 06/19/2017. PLAN: Continue physical therapy.
[2017-06-26] MEDS: Polyethylene Glycol 3350 17 GM Packet PO SCH (09:23)
[2017-06-26] MEDS: Finasteride 5 MG TAB PO SCH (09:24)
[2017-06-26] MEDS: Atorvastatin Calcium 10 MG TAB PO SCH (09:24)
[2017-06-26] MEDS: Tamsulosin HCl 0.4 MG CAP PO SCH (09:24)
[2017-06-26] MEDS: RASAGILINE MESYLATE 1 MG PO SCH (09:24)
[2017-06-26] MEDS: Floranex Packet PO SCH (09:24)
[2017-06-26] MEDS: Senokot S 8.6-50 MG TAB PO SCH (09:25)
[2017-06-27] MEDS: Carbidopa/Levodopa CR 50-200 mg Tablet PO SCH ×5 (06:05→18:22)
[2017-06-27] MEDS: Floranex Packet PO SCH (08:48)
[2017-06-27] MEDS: Finasteride 5 MG TAB PO SCH (08:49)
[2017-06-27] MEDS: Tamsulosin HCl 0.4 MG CAP PO SCH (08:49)
[2017-06-27] MEDS: Atorvastatin Calcium 10 MG TAB PO SCH (08:49)
[2017-06-27] MEDS: Senokot S 8.6-50 MG TAB PO SCH (08:49)
[2017-06-27] MEDS: Polyethylene Glycol 3350 17 GM Packet PO SCH (08:49)
[2017-06-27] MEDS: RASAGILINE MESYLATE 1 MG PO SCH (08:50)
--- NOTE | 2017-06-27 09:53 | PRG ---
DATE OF SERVICE: 06/27/2017 SUBJECTIVE: The patient is sitting up in a Dayan chair. He has his pureed diet before him, but is no t eating. The nurses have tried to feed him, but they said he just this morning would not try to eat . They will retry again later. Nurses said that he is sleeping some in the daytime and sleeps well at night. They have not seen any change with him. OBJECTIVE: The patient is sitting up in a Dayan chair. He is alert, but did not really attempt to ta lk. He does not appear in any acute distress. His temperature is 96.7, pulse 80, respirations 20, O 2 sat 100% on room air, blood pressure 163/88. Lungs are clear. Heart, regular rate. Extremities: No edema. Neurologic; the patient is alert, but did not really attempt to talk. He has an expressi onless face. His extremities are stiff. He has resting tremors in the hands and arms. ASSESSMENT: 1. Severe weakness. A. Presently bed confined. B. Etiology, secondary to repeated hospitalizations. C. Also secondary to recent Clostridium difficile colitis. D. Improved where he is tolerating sitting up in a Dayan chair as of 06/27/2017. 2. Recent multiple hospitalizations at [facility]. A. 05/10/2017 until 05/22/2017 for septic shock from urinary tract infection with a left uretera l stone causing a hydroureter and hydronephrosis requiring emergent percutaneous nephrostomy tu be and ureteroscopic stone basket extraction. B. Hospitalized from 06/02/2017 until 06/06/2017 for Clostridium difficile colitis. C. Hospitalized at [facility] from 06/13/2017 until 06/20/2017 for Clostridium diffici le colitis and altered mental status. 3. Advanced Parkinson's disease. A. Complicated by Parkinson's dementia. B. Complicated by dysphagia. C. Complicated by severe weakness. D. Complicated by high fall risk. E. Unchanged as of 06/27/2017. 4. Hypertension. 5. Chronic atrial fibrillation. A. Rate controlled. B. Status post pacemaker placement. 6. Constipation. 7. Code status: DNR. 8. Benign prostatic hypertrophy. 9. Recent Clostridium difficile colitis. A. Treated with 10-day course of vancomycin 125 mg q.i.d. beginning on 06/06/2017 and completing on 06/19/2017. PLAN: Continue present care. Continue efforts with physical therapy. Continue assistance with feed ing.
[2017-06-28] MEDS: Carbidopa/Levodopa CR 50-200 mg Tablet PO SCH ×6 (06:23→19:25)
[2017-06-28] MEDS: Tamsulosin HCl 0.4 MG CAP PO SCH (08:26)
[2017-06-28] MEDS: Floranex Packet PO SCH (08:26)
[2017-06-28] MEDS: Polyethylene Glycol 3350 17 GM Packet PO SCH (08:26)
[2017-06-28] MEDS: Senokot S 8.6-50 MG TAB PO SCH (08:26)
[2017-06-28] MEDS: Atorvastatin Calcium 10 MG TAB PO SCH (08:26)
[2017-06-28] MEDS: Finasteride 5 MG TAB PO SCH (08:26)
[2017-06-28] MEDS: RASAGILINE MESYLATE 1 MG PO SCH (08:27)
[2017-06-29] MEDS: Atorvastatin Calcium 10 MG TAB PO SCH (09:03)
[2017-06-29] MEDS: Floranex Packet PO SCH (09:03)
[2017-06-29] MEDS: RASAGILINE MESYLATE 1 MG PO SCH (09:03)
[2017-06-29] MEDS: Finasteride 5 MG TAB PO SCH (09:03)
[2017-06-29] MEDS: Senokot S 8.6-50 MG TAB PO SCH (09:04)
[2017-06-29] MEDS: Tamsulosin HCl 0.4 MG CAP PO SCH (09:04)
[2017-06-29] MEDS: Polyethylene Glycol 3350 17 GM Packet PO SCH (09:04)
[2017-06-29] MEDS: Carbidopa/Levodopa CR 50-200 mg Tablet PO SCH ×4 (10:40→18:57)
[2017-06-30] MEDS: Carbidopa/Levodopa CR 50-200 mg Tablet PO SCH ×5 (06:08→19:17)
[2017-06-30] MEDS: Atorvastatin Calcium 10 MG TAB PO SCH (09:19)
[2017-06-30] MEDS: Finasteride 5 MG TAB PO SCH (09:19)
[2017-06-30] MEDS: Floranex Packet PO SCH (09:19)
[2017-06-30] MEDS: Senokot S 8.6-50 MG TAB PO SCH (09:20)
[2017-06-30] MEDS: Polyethylene Glycol 3350 17 GM Packet PO SCH (09:20)
[2017-06-30] MEDS: RASAGILINE MESYLATE 1 MG PO SCH (09:20)
[2017-06-30] MEDS: Tamsulosin HCl 0.4 MG CAP PO SCH (09:20)
--- NOTE | 2017-06-30 10:40 | PRG ---
DATE OF SERVICE: 06/30/2017 SUBJECTIVE: The patient is sleeping this morning, could not awaken where he would open his eyes. He did have more resistance when trying to move his arms. Nurses report that he slept all of yesterday and did not eat. OBJECTIVE: The patient is lying in bed with his eyes closed, did not open his eyes when his name was called or when he was attempted to move his arms or did seem to be resistant to moving the arm. His vital signs showed temperature 96.7, pulse 85, respirations 16, O2 saturation 100 on room air, blood pressure 134/74. Lungs are clear. Heart, regular rate. Skin turgor, poor. ASSESSMENT: 1. Severe weakness. A. Presently bed confined. B. Etiology, secondary to repeated hospitalizations. C. Also secondary to recent Clostridium difficile colitis. D. Today, patient bed confined and would not awaken as of 06/30/2017. 2. Recent multiple hospitalizations at [facility]. A. 05/10/2017 until 05/22/2017 for septic shock from urinary tract infection with a left uretera l stone causing a hydroureter and hydronephrosis requiring emergent percutaneous nephrostomy tu be and ureteroscopic stone basket extraction. B. Hospitalized from 06/02/2017 until 06/06/2017 for Clostridium difficile colitis. C. Hospitalized at [facility] from 06/13/2017 until 06/20/2017 for Clostridium diffici le colitis and altered mental status. 3. Advanced Parkinson's disease. A. Complicated by Parkinson's dementia. B. Complicated by dysphagia. C. Complicated by severe weakness. D. Complicated by high fall risk. E. Unchanged as of 06/30/2017. 4. Hypertension. 5. Chronic atrial fibrillation. A. Rate controlled. B. Status post pacemaker placement. 6. Constipation. 7. Code status: DNR. 8. Benign prostatic hypertrophy. 9. Recent Clostridium difficile colitis. A. Treated with 10-day course of vancomycin 125 mg q.i.d. beginning on 06/06/2017 and completing on 06/19/2017. PLAN: The patient would not awaken today. We will check a CBC and basic metabolic panel. The patie nt is not receiving any medication that would add to his increased lethargy.
[2017-06-30 10:47] LABS: #Basophils 0.1 thou/uL (0.0-0.2); #Eosinphils 0.1 thou/uL (0.0-0.7); #Lymphocytes 1.9 thou/uL (1.20-3.40); #Monocytes 0.5 thou/uL (0.11-0.59); #Neutrophils 4.2 thou/uL (1.40-6.50); %Basophils 0.8 % (0.0-1.0); %Eosinophils 1.9 % (0.0-10.0); %Lymphocytes 28.4 % (21.0-51.0); %Monocytes 6.6 % (0.0-10.0); %Neutrophils 62.3 % (42.0-75.0); Hemoglobin 15.3 g/dL (14.0-18.0); Mean Corpuscular HGB CONC 33.6 g/dL (32.0-36.0); Mean Corpuscular Hemoglobin 30.8 pg (27.0-31.0); Mean Corpuscular Volume 91.8 fl (80.0-94.0); Mean Platelet Volume 6.2 fL (7.4-10.4); Platelet Count 210 thou/uL (130-400); RBC Distribution Width 13.3 % (11.5-14.5); Red Blood Cell (RBC) Count 4.96 mill/uL (4.70-6.10); White Blood Cell (WBC) Count 6.7 thou/uL (4.8-10.8)
[2017-06-30 11:11] LABS: ALT (SGPT) 13 U/L (8-55); AST (SGOT) 44 U/L (5-34); Albumin 3.7 g/dL (3.4-4.8); Alkaline Phosphatase 71 U/L (40-150); Anion Gap 16 mmol/L (10-20); BUN (Urea Nitrogen) 15 mg/dL (8.4-25.7); Bilirubin, Total 1.6 mg/dL (0.2-1.2); Calc. Creatinine Clearance 53 mL/min (70-130); Calcium 9.1 mg/dL (7.8-10.44); Carbon Dioxide 30 mmol/L (23-31); Chloride 101 mmol/L (98-107); Estimated GFR-MDRD 84; Glucose 111 mg/dL (83-110); Potassium 3.8 mmol/L (3.5-5.1); Protein, Total 6.7 g/dL (5.8-8.1); Sodium 143 mmol/L (136-145)
[2017-06-30 18:11] LABS: Bilirubin Negative (Negative); Blood, Urine Trace (Negative); Clarity Cloudy (Clear); Glucose, Urine (Dipstick) Negative (Negative); Leukocyte Large (Negative); Nitrite Positive (Negative); Protein, Urine (Dipstick) Trace mg/dL (Neg-Trace); Urobilinogen 0.2 mg/dL (0.2-1.0)
[2017-06-30 18:27] LABS: Bacteria/HPF 4+ HPF (None Seen); Squamous Epithelial None Seen HPF (0-3)
[2017-07-01] MEDS: Tamsulosin HCl 0.4 MG CAP PO SCH (08:37)
[2017-07-01] MEDS: Senokot S 8.6-50 MG TAB PO SCH (08:37)
[2017-07-01] MEDS: Polyethylene Glycol 3350 17 GM Packet PO SCH (08:37)
[2017-07-01] MEDS: Floranex Packet PO SCH (08:37)
[2017-07-01] MEDS: Finasteride 5 MG TAB PO SCH (08:37)
[2017-07-01] MEDS: Carbidopa/Levodopa CR 50-200 mg Tablet PO SCH ×6 (08:37→18:55)
[2017-07-01] MEDS: RASAGILINE MESYLATE 1 MG PO SCH (08:45)
--- NOTE | 2017-07-01 11:29 | PRG ---
DATE OF SERVICE: 07/01/2017 SUBJECTIVE: Nurses said that patient has periods in the day where he will sleep, during those times he does not eat. He is hard to awake, and he is not on any medication contributing to this. This mo rning, he has been up and taken to Physical Therapy Department and he is standing and shuffling a few steps with the aid of a walker and standby assistance. OBJECTIVE: The patient is standing, holding onto his walker. He is awake, eyes open, would not atte mpt to talk. His vital signs shows a temperature of 97.9, pulse 80, respirations 18, O2 sat 94% on r oom air, blood pressure 133/71. Mouth mucous membranes are moist. Lungs are clear. Heart, regular rate. Extremities, no edema. LABORATORY DATA: His lab drawn yesterday showed an H and H of 15.3 and 45.5, white blood cell count 6700 with 62% segs, 28% lymphocytes, and a platelet count of 210,000. Sodium 143, potassium 3.8, BUN 15, creatinine 0.88. GFR 84, glucose 111, total bilirubin 1.6, AST 44, ALT 13, alkaline phosphatase 71. His urine showed positive nitrite and WBCs too numerous to count and 4+ bacteria. ASSESSMENT: 1. Severe weakness. A. Presently bed confined. B. Etiology, secondary to repeated hospitalizations. C. Also secondary to recent Clostridium difficile colitis. D. Patient is standing and able to shuffle a few steps with a walker and standby 1 person assist ance as of 07/01/2017. 2. Recent multiple hospitalizations at [facility]. A. 05/10/2017 until 05/22/2017 for septic shock from urinary tract infection with a left uretera l stone causing a hydroureter and hydronephrosis requiring emergent percutaneous nephrostomy tu be and ureteroscopic stone basket extraction. B. Hospitalized from 06/02/2017 until 06/06/2017 for Clostridium difficile colitis. C. Hospitalized at [facility] from 06/13/2017 until 06/20/2017 for Clostridium diffici le colitis and altered mental status. 3. Advanced Parkinson's disease. A. Complicated by Parkinson's dementia. B. Complicated by dysphagia. C. Complicated by severe weakness. D. Complicated by high fall risk. E. Unchanged as of 06/30/2017. 4. Hypertension. 5. Chronic atrial fibrillation. A. Rate controlled. B. Status post pacemaker placement. 6. Constipation. 7. Code status: DNR. 8. Benign prostatic hypertrophy. 9. Recent Clostridium difficile colitis. A. Treated with 10-day course of vancomycin 125 mg q.i.d. beginning on 06/06/2017 and completing on 06/19/2017. PLAN: The lethargy is better today, but this is intermittent and probably more related to his advanc ed Parkinson's and Parkinson's dementia. He is eating well when he is awake, according to the nurses . He does not appear dehydrated. His urine has pyuria present. He is not complaining, but may be h rosemary for him to express any complaints there. He is having no fever, no leukocytosis. He had the rec ent C. difficile infection. We will await starting him on any antibiotics to see if he has any compl aints or any other signs of infection. 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 We will rajwinder it results of culture and development of any symptom before making any commitment on antibiotics. Co ntinue efforts with physical therapy.
[2017-07-02] MEDS: Carbidopa/Levodopa CR 50-200 mg Tablet PO SCH ×5 (06:22→18:56)
[2017-07-02] MEDS: Floranex Packet PO SCH (08:19)
[2017-07-02] MEDS: Finasteride 5 MG TAB PO SCH (08:19)
[2017-07-02] MEDS: RASAGILINE MESYLATE 1 MG PO SCH (08:19)
[2017-07-02] MEDS: Tamsulosin HCl 0.4 MG CAP PO SCH (08:20)
[2017-07-02] MEDS: Senokot S 8.6-50 MG TAB PO SCH (08:20)
[2017-07-02] MEDS: Polyethylene Glycol 3350 17 GM Packet PO SCH (08:20)
--- NOTE | 2017-07-02 08:41 | PRG ---
DATE OF SERVICE: 07/02/2017 SUBJECTIVE: The patient is sitting up in a Dayan chair. He is alert, tries to talk a little, but cou ld not understand him. Overall, he looks better. OBJECTIVE: The patient is alert attempts to talk, but could not understand. His temperature is 97.1 , pulse 80, respirations 18, O2 sat 97% on room air, blood pressure 128/71. Lungs were clear. Heart , regular rate. Extremities, no edema. ASSESSMENT: 1. Severe weakness. A. Presently bed confined. B. Etiology, secondary to repeated hospitalizations. C. Also secondary to recent Clostridium difficile colitis. D. Mild improvement. The patient is tolerating sitting up in a Dayan chair. With physical thera py he is able to stand and shuffle a few steps with a walker and 1 person assist as of 07/02/2017. 2. Recent multiple hospitalizations at [facility]. A. 05/10/2017 until 05/22/2017 for septic shock from urinary tract infection with a left uretera l stone causing a hydroureter and hydronephrosis requiring emergent percutaneous nephrostomy tu be and ureteroscopic stone basket extraction. B. Hospitalized from 06/02/2017 until 06/06/2017 for Clostridium difficile colitis. C. Hospitalized at [facility] from 06/13/2017 until 06/20/2017 for Clostridium diffici le colitis and altered mental status. 3. Advanced Parkinson's disease. A. Complicated by Parkinson's dementia. B. Complicated by dysphagia. C. Complicated by severe weakness. D. Complicated by high fall risk. E. Unchanged as of 06/30/2017. 4. Hypertension. 5. Chronic atrial fibrillation. A. Rate controlled. B. Status post pacemaker placement. 6. Constipation. 7. Code status: DNR. 8. Benign prostatic hypertrophy. 9. Recent Clostridium difficile colitis. A. Treated with 10-day course of vancomycin 125 mg q.i.d. beginning on 06/06/2017 and completing on 06/19/2017. PLAN: Continue present care. Continue physical therapy.
[2017-07-03] MEDS: Carbidopa/Levodopa CR 50-200 mg Tablet PO SCH ×5 (07:22→19:09)
[2017-07-03] MEDS: Floranex Packet PO SCH ×2 (08:34→08:35)
[2017-07-03] MEDS: Finasteride 5 MG TAB PO SCH (08:35)
[2017-07-03] MEDS: Senokot S 8.6-50 MG TAB PO SCH (08:35)
[2017-07-03] MEDS: RASAGILINE MESYLATE 1 MG PO SCH (08:35)
[2017-07-03] MEDS: Tamsulosin HCl 0.4 MG CAP PO SCH (08:35)
[2017-07-03] MEDS: Polyethylene Glycol 3350 17 GM Packet PO SCH (08:35)
--- NOTE | 2017-07-03 08:51 | PRG ---
DATE OF SERVICE: 07/03/2017 SUBJECTIVE: The patient is doing better. He is sitting up for long periods up in his Dayan chair. Yulia mohr has been eating much better and feeding himself. He is working with physical therapy. Some days yulia mohr is able to walk very far with caregiver assist. On the , he walked up to 150 feet. This morni ng, only 20 feet. The nurses report that at times he is able to get up in the room, other times he i s less able. OBJECTIVE: This morning the patient is sitting up in a Dayan chair. He is alert, tries to talk a lit tle bit, but low volume, he is a little hard to understand. He appears comfortable in no distress. Temp 97.8, pulse 79, respirations 20, O2 sat 95% on room air, blood pressure 122/65. Lungs are clear . Heart, regular rate. He urine culture grew an E. coli with colony count of 100,000, susceptibilit y to follow. The patient is not having any symptoms. No fever. I suspect this is probably a coloni zation. We will not place patient on any antibiotics since he is having no symptoms, particularly si nce he just recently had the C. difficile colitis. ASSESSMENT: 1. Severe weakness. A. Presently bed confined. B. Etiology, secondary to repeated hospitalizations. C. Also secondary to recent Clostridium difficile colitis. D. Improved. At times the patient is able to walk with assistance very well, at times the patie nt able to walk up to 150 feet and other times 20 feet as of 07/03/2017. Suspect a lot of this is related to his Parki nson's. 2. Recent multiple hospitalizations at [facility]. A. 05/10/2017 until 05/22/2017 for septic shock from urinary tract infection with a left uretera l stone causing a hydroureter and hydronephrosis requiring emergent percutaneous nephrostomy tu be and ureteroscopic stone basket extraction. B. Hospitalized from 06/02/2017 until 06/06/2017 for Clostridium difficile colitis. C. Hospitalized at [facility] from 06/13/2017 until 06/20/2017 for Clostridium diffici le colitis and altered mental status. 3. Advanced Parkinson's disease. A. Complicated by Parkinson's dementia. B. Complicated by dysphagia. C. Complicated by severe weakness. D. Complicated by high fall risk. E. Unchanged as of 06/30/2017. 4. Hypertension. 5. Chronic atrial fibrillation. A. Rate controlled. B. Status post pacemaker placement. 6. Constipation. 7. Code status: DNR. 8. Benign prostatic hypertrophy. 9. Recent Clostridium difficile colitis. A. Treated with 10-day course of vancomycin 125 mg q.i.d. beginning on 06/06/2017 and completing on 06/19/2017. 10. Urine culture growing E. coli, colony count greater than 100,000, the patient is asymptomatic and running no fever. I suspect this is more colonization. PLAN: Continue physical therapy. Continue present care. We will not treat the E. coli since he is not having any symptoms and particularly since he just recently had the C. difficile colitis.
[2017-07-04] MEDS: Carbidopa/Levodopa CR 50-200 mg Tablet PO SCH ×5 (06:12→19:09)
[2017-07-04] MEDS: Floranex Packet PO SCH (08:01)
[2017-07-04] MEDS: Finasteride 5 MG TAB PO SCH (08:01)
[2017-07-04] MEDS: Polyethylene Glycol 3350 17 GM Packet PO SCH (08:01)
[2017-07-04] MEDS: Senokot S 8.6-50 MG TAB PO SCH (08:01)
[2017-07-04] MEDS: Tamsulosin HCl 0.4 MG CAP PO SCH (08:01)
[2017-07-04] MEDS: RASAGILINE MESYLATE 1 MG PO SCH (08:05)
--- NOTE | 2017-07-04 12:12 | PRG ---
DATE OF SERVICE: 07/04/2017 SUBJECTIVE: Nurses said that patient is doing better. He has periods where he is much more awake an d very interactive and able to do much more and eat better. He also has episodes where he is sleepy or more lethargic and much less interactive, but this is part of his advanced Parkinson's and Jitendra on's dementia. Overall, he has made good progress from his admission. OBJECTIVE: GENERAL: The patient is sitting up in a Dayan chair. He was sleeping with the head bent forward. Up on awakening, he was alert, tried to talk some, but hard to understand. He does not appear in any di stress. VITAL SIGNS: His temperature is 98.4, pulse 80, respirations 18, O2 sat 97% on room air, and blood p ressure 122/68. LUNGS: Clear. HEART: Regular rate. EXTREMITIES: No edema. ASSESSMENT: 1. Severe weakness. A. Presently bed confined. B. Etiology, secondary to repeated hospitalizations. C. Also secondary to recent Clostridium difficile colitis. D. The patient's ability to participate and advance with physical therapy. He has been quite va riable depending upon his Parkinson's. When he is more awake and alert, he is able do quite a bit more as of 8: The remaining diagnoses are the same. 2. Recent multiple hospitalizations at [facility]. A. 05/10/2017 until 05/22/2017 for septic shock from urinary tract infection with a left uretera l stone causing a hydroureter and hydronephrosis requiring emergent percutaneous nephrostomy tu be and ureteroscopic stone basket extraction. B. Hospitalized from 06/02/2017 until 06/06/2017 for Clostridium difficile colitis. C. Hospitalized at [facility] from 06/13/2017 until 06/20/2017 for Clostridium diffici le colitis and altered mental status. 3. Advanced Parkinson's disease. A. Complicated by Parkinson's dementia. B. Complicated by dysphagia. C. Complicated by severe weakness. D. Complicated by high fall risk. E. Unchanged as of 06/30/2017. 4. Hypertension. 5. Chronic atrial fibrillation. A. Rate controlled. B. Status post pacemaker placement. 6. Constipation. 7. Code status: DNR. 8. Benign prostatic hypertrophy. 9. Recent Clostridium difficile colitis. A. Treated with 10-day course of vancomycin 125 mg q.i.d. beginning on 06/06/2017 and completing on 06/19/2017. 10. Urine culture growing E. coli, colony count greater than 100,000, the patient is asymptomatic and running no fever. I suspect this is more colonization. PLAN: Continue efforts of physical therapy.
[2017-07-05] MEDS: Carbidopa/Levodopa CR 50-200 mg Tablet PO SCH ×5 (07:27→19:33)
[2017-07-05] MEDS: Finasteride 5 MG TAB PO SCH (08:08)
[2017-07-05] MEDS: Senokot S 8.6-50 MG TAB PO SCH (08:08)
[2017-07-05] MEDS: RASAGILINE MESYLATE 1 MG PO SCH (08:09)
[2017-07-05] MEDS: Polyethylene Glycol 3350 17 GM Packet PO SCH (08:09)
[2017-07-05] MEDS: Tamsulosin HCl 0.4 MG CAP PO SCH (08:09)
[2017-07-05] MEDS: Floranex Packet PO SCH (08:10)
--- NOTE | 2017-07-05 18:14 | PRG ---
DATE OF SERVICE: 07/05/2017 SUBJECTIVE: The patient is lying in bed being bathed. Earlier, he was sitting up and had breakfast. He is able to eat some finger foods, but often times needs help. Patient is able to walk short dis tances with the help of physical therapy, but his ability to cooperate really is dependent upon his P arkinson's and his degree of stiffness. PHYSICAL EXAMINATION: VITAL SIGNS: Shows temperature 98.2, pulse 80, respirations 18, O2 sat 94% on room air, blood pressu re 123/62. LUNGS: Clear. HEART: Regular rate. EXTREMITIES: There is some stiffness to the movement and he has the resting tremors in the hands and arm. He did not attempt to speak to me when spoken to, but he is awake and alert, looking around. ASSESSMENT: 1. Severe weakness. A. Presently bed confined. B. Etiology, secondary to repeated hospitalizations. C. Also secondary to recent Clostridium difficile colitis. D. The patient's ability to participate and advance with physical therapy. He has been quite va riable depending upon his Parkinson's. When he is more awake and alert, he is able do quite a bit more as of 07/05/2017. 2. Recent multiple hospitalizations at [facility]. A. 05/10/2017 until 05/22/2017 for septic shock from urinary tract infection with a left uretera l stone causing a hydroureter and hydronephrosis requiring emergent percutaneous nephrostomy tu be and ureteroscopic stone basket extraction. B. Hospitalized from 06/02/2017 until 06/06/2017 for Clostridium difficile colitis. C. Hospitalized at [facility] from 06/13/2017 until 06/20/2017 for Clostridium diffici le colitis and altered mental status. 3. Advanced Parkinson's disease. A. Complicated by Parkinson's dementia. B. Complicated by dysphagia. C. Complicated by severe weakness. D. Complicated by high fall risk. E. Unchanged as of 06/30/2017. 4. Hypertension. 5. Chronic atrial fibrillation. A. Rate controlled. B. Status post pacemaker placement. 6. Constipation. 7. Code status: DNR. 8. Benign prostatic hypertrophy. 9. Recent Clostridium difficile colitis. A. Treated with 10-day course of vancomycin 125 mg q.i.d. beginning on 06/06/2017 and completing on 06/19/2017. 10. Urine culture growing E. coli, colony count greater than 100,000, the patient is asymptomatic and running no fever. I suspect this is more colonization. PLAN: Continue present care.
[2017-07-06] MEDS: Carbidopa/Levodopa CR 50-200 mg Tablet PO SCH ×6 (06:07→18:26)
[2017-07-06] MEDS: Polyethylene Glycol 3350 17 GM Packet PO SCH (08:19)
[2017-07-06] MEDS: Tamsulosin HCl 0.4 MG CAP PO SCH (08:19)
[2017-07-06] MEDS: Finasteride 5 MG TAB PO SCH (08:19)
[2017-07-06] MEDS: Senokot S 8.6-50 MG TAB PO SCH (08:19)
[2017-07-06] MEDS: RASAGILINE MESYLATE 1 MG PO SCH (08:20)
[2017-07-06] MEDS: Floranex Packet PO SCH (08:20)
[2017-07-07] MEDS: Carbidopa/Levodopa CR 50-200 mg Tablet PO SCH ×5 (06:02→18:56)
[2017-07-07] MEDS: Finasteride 5 MG TAB PO SCH (08:05)
[2017-07-07] MEDS: Floranex Packet PO SCH (08:05)
[2017-07-07] MEDS: Tamsulosin HCl 0.4 MG CAP PO SCH (08:05)
[2017-07-07] MEDS: Senokot S 8.6-50 MG TAB PO SCH (08:05)
[2017-07-07] MEDS: Polyethylene Glycol 3350 17 GM Packet PO SCH (08:06)
[2017-07-07] MEDS: RASAGILINE MESYLATE 1 MG PO SCH (08:06)
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
[2017-07-07] MEDS ORDERED: risperiDONE 0.5 MG TAB PO SCH (21:45)
[2017-07-08] MEDS: Carbidopa/Levodopa CR 50-200 mg Tablet PO SCH ×5 (07:24→19:46)
[2017-07-08] MEDS: Senokot S 8.6-50 MG TAB PO SCH (09:29)
[2017-07-08] MEDS: Tamsulosin HCl 0.4 MG CAP PO SCH (09:29)
[2017-07-08] MEDS: Floranex Packet PO SCH (09:29)
[2017-07-08] MEDS: Polyethylene Glycol 3350 17 GM Packet PO SCH (09:29)
[2017-07-08] MEDS: Finasteride 5 MG TAB PO SCH (09:31)
[2017-07-08] MEDS: RASAGILINE MESYLATE 1 MG PO SCH (09:31)
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
[2017-07-08] MEDS: Acetaminophen 325 MG TAB PO PRN (19:43)
[2017-07-09] MEDS: Carbidopa/Levodopa CR 50-200 mg Tablet PO SCH ×5 (07:50→19:52)
[2017-07-09] MEDS: Tamsulosin HCl 0.4 MG CAP PO SCH (09:45)
[2017-07-09] MEDS: Floranex Packet PO SCH (09:45)
[2017-07-09] MEDS: Finasteride 5 MG TAB PO SCH (09:45)
[2017-07-09] MEDS: Senokot S 8.6-50 MG TAB PO SCH (09:45)
[2017-07-09] MEDS: RASAGILINE MESYLATE 1 MG PO SCH (09:47)
[2017-07-09] MEDS: Polyethylene Glycol 3350 17 GM Packet PO SCH (09:48)
[2017-07-09 13:01] LABS: Hemoglobin 14.7 g/dL (14.0-18.0); Mean Corpuscular Hemoglobin 29.6 pg (27.0-31.0); Mean Corpuscular Volume 92.6 fl (80.0-94.0); Mean Platelet Volume 7.1 fL (7.4-10.4); Platelet Count 182 thou/uL (130-400); RBC Distribution Width 13.6 % (11.5-14.5); Red Blood Cell (RBC) Count 4.95 mill/uL (4.70-6.10); White Blood Cell (WBC) Count 9.6 thou/uL (4.8-10.8)
[2017-07-09 13:09] LABS: ALT (SGPT) 7 U/L (8-55); AST (SGOT) 9 U/L (5-34); Albumin 3.7 g/dL (3.4-4.8); Alkaline Phosphatase 72 U/L (40-150); Anion Gap 20 mmol/L (10-20); BUN (Urea Nitrogen) 18 mg/dL (8.4-25.7); Bilirubin, Total 1.7 mg/dL (0.2-1.2); Calc. Creatinine Clearance 56 mL/min (70-130); Calcium 9.2 mg/dL (7.8-10.44); Carbon Dioxide 22 mmol/L (23-31); Chloride 104 mmol/L (98-107); Estimated GFR-MDRD Greater than 90; Globulin 3.1 g/dL (2.4-3.5); Glucose 83 mg/dL (83-110); Potassium 3.9 mmol/L (3.5-5.1); Protein, Total 6.8 g/dL (5.8-8.1); Sodium 142 mmol/L (136-145)
[2017-07-09 13:17] LABS: Band 5 % (5-11); Eosinophils 3 % (0-10); Lymphocytes 14 % (21-51); MDiff Complete? YES; Monocytes 5 % (0-10); Neutrophil 73 % (42-75)
[2017-07-09 13:18] LABS: Anisocytosis SLIGHT = 6-15 cells (100X) (0-5/hpf); PLT Morphology Comment Appears Adequate
[2017-07-09] MEDS: Dextrose 5 % And 0.9 % NaCl 1,000 ML IV SCH (13:35)
[2017-07-09] MEDS: metroNIDAZOLE 500 MG in Premix Bag 1 BAG IVPB SCH ×2 (13:49→21:11)
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
[2017-07-10] MEDS: Dextrose 5 % And 0.9 % NaCl 1,000 ML IV SCH ×2 (03:04→16:15)
[2017-07-10] MEDS: metroNIDAZOLE 500 MG in Premix Bag 1 BAG IVPB SCH ×3 (05:27→21:32)
[2017-07-10 06:48] LABS: #Lymphocytes 1.5 thou/uL (1.20-3.40); %Basophils 0.8 % (0.0-1.0); %Eosinophils 0.8 % (0.0-10.0); %Lymphocytes 18.1 % (21.0-51.0); %Monocytes 6.2 % (0.0-10.0); %Neutrophils 74.1 % (42.0-75.0); Hemoglobin 13.6 g/dL (14.0-18.0); Mean Corpuscular HGB CONC 31.9 g/dL (32.0-36.0); Mean Corpuscular Hemoglobin 29.6 pg (27.0-31.0); Mean Corpuscular Volume 92.7 fL (80.0-94.0); Mean Platelet Volume 6.6 fL (7.4-10.4); Platelet Count 196 thou/uL (130-400); RBC Distribution Width 13.9 % (11.5-14.5); Red Blood Cell (RBC) Count 4.61 mill/uL (4.70-6.10); White Blood Cell (WBC) Count 8.2 thou/uL (4.8-10.8)
[2017-07-10 06:49] LABS: #Basophils 0.1 thou/uL (0.0-0.2); #Eosinphils 0.1 thou/uL (0.0-0.7); #Monocytes 0.5 thou/uL (0.11-0.59)
[2017-07-10 06:54] LABS: Potassium 3.8 mmol/L (3.5-5.1); Sodium 145 mmol/L (136-145)
[2017-07-10 06:55] LABS: BUN (Urea Nitrogen) 17 mg/dL (8.4-25.7); Calc. Creatinine Clearance 57 mL/min (70-130); Calcium 8.7 mg/dL (7.8-10.44); Carbon Dioxide 26 mmol/L (23-31); Chloride 108 mmol/L (98-107); Estimated GFR-MDRD Greater than 90; Glucose 106 mg/dL (83-110)
[2017-07-10 06:56] LABS: Anion Gap 15 mmol/L (10-20)
[2017-07-10] MEDS: Carbidopa/Levodopa CR 50-200 mg Tablet PO SCH ×5 (07:00→19:03)
[2017-07-10] MEDS: Floranex Packet PO SCH (08:07)
[2017-07-10] MEDS: Senokot S 8.6-50 MG TAB PO SCH (08:07)
[2017-07-10] MEDS: Finasteride 5 MG TAB PO SCH (08:08)
[2017-07-10] MEDS: Tamsulosin HCl 0.4 MG CAP PO SCH (08:08)
[2017-07-10] MEDS: RASAGILINE MESYLATE 1 MG PO SCH (08:08)
[2017-07-10] MEDS: Polyethylene Glycol 3350 17 GM Packet PO SCH (08:09)
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
[2017-07-10] MEDS: Acetaminophen 325 MG TAB PO PRN (21:52)
[2017-07-11] MEDS: metroNIDAZOLE 500 MG in Premix Bag 1 BAG IVPB SCH (06:01)
[2017-07-11] MEDS: Dextrose 5 % And 0.9 % NaCl 1,000 ML IV SCH (06:22)
[2017-07-11] MEDS: Carbidopa/Levodopa CR 50-200 mg Tablet PO SCH ×5 (07:05→18:06)
[2017-07-11] MEDS: Polyethylene Glycol 3350 17 GM Packet PO SCH (10:33)
[2017-07-11] MEDS: Tamsulosin HCl 0.4 MG CAP PO SCH (10:41)
[2017-07-11] MEDS: Finasteride 5 MG TAB PO SCH (10:42)
[2017-07-11] MEDS: Senokot S 8.6-50 MG TAB PO SCH (10:44)
[2017-07-11] MEDS: Floranex Packet PO SCH (10:45)
[2017-07-11] MEDS: RASAGILINE MESYLATE 1 MG PO SCH (10:46)
[2017-07-11] MEDS ORDERED: Sucralfate 1 GM TAB PO SCH (12:00)
[2017-07-11] MEDS: Vancomycin HCl 25 MG/ML Oral PO SCH ×4 (12:44→20:36)
[2017-07-11] MEDS ORDERED: Dextrose 5 % And 0.9 % NaCl 1000 ml Bag ONE (14:00)
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
[2017-07-12] MEDS: Acetaminophen 325 MG TAB PO PRN (01:21)
[2017-07-12] MEDS: Carbidopa/Levodopa CR 50-200 mg Tablet PO SCH ×5 (06:21→18:55)
[2017-07-12] MEDS: Floranex Packet PO SCH (08:48)
[2017-07-12] MEDS: Finasteride 5 MG TAB PO SCH (08:48)
[2017-07-12] MEDS: Tamsulosin HCl 0.4 MG CAP PO SCH (08:49)
[2017-07-12] MEDS: Polyethylene Glycol 3350 17 GM Packet PO SCH (08:49)
[2017-07-12] MEDS: Senokot S 8.6-50 MG TAB PO SCH (08:49)
[2017-07-12] MEDS: Vancomycin HCl 25 MG/ML Oral PO SCH ×4 (08:50→20:20)
[2017-07-12] MEDS: RASAGILINE MESYLATE 1 MG PO SCH (08:50)
[2017-07-13] MEDS: Carbidopa/Levodopa CR 50-200 mg Tablet PO SCH ×6 (07:13→19:38)
[2017-07-13] MEDS: Polyethylene Glycol 3350 17 GM Packet PO SCH (09:03)
[2017-07-13] MEDS: Senokot S 8.6-50 MG TAB PO SCH (09:04)
[2017-07-13] MEDS: Tamsulosin HCl 0.4 MG CAP PO SCH (09:04)
[2017-07-13] MEDS: Floranex Packet PO SCH (09:04)
[2017-07-13] MEDS: Vancomycin HCl 25 MG/ML Oral PO SCH ×4 (09:05→20:21)
[2017-07-13] MEDS: RASAGILINE MESYLATE 1 MG PO SCH (09:05)
[2017-07-13] MEDS: Finasteride 5 MG TAB PO SCH (09:05)
[2017-07-14] MEDS: Carbidopa/Levodopa CR 50-200 mg Tablet PO SCH ×5 (07:06→19:10)
[2017-07-14] MEDS: Polyethylene Glycol 3350 17 GM Packet PO SCH (09:14)
[2017-07-14] MEDS: Floranex Packet PO SCH (09:14)
[2017-07-14] MEDS: Tamsulosin HCl 0.4 MG CAP PO SCH (09:16)
[2017-07-14] MEDS: Senokot S 8.6-50 MG TAB PO SCH (09:16)
[2017-07-14] MEDS: Finasteride 5 MG TAB PO SCH (09:16)
[2017-07-14] MEDS: RASAGILINE MESYLATE 1 MG PO SCH (09:18)
[2017-07-14] MEDS: Vancomycin HCl 25 MG/ML Oral PO SCH ×4 (09:20→20:47)
--- NOTE | 2017-07-14 09:50 | PRG ---
DATE OF SERVICE: 07/14/2017 SUBJECTIVE: The patient was sleeping in his Dayan chair this morning. The nurses said that Mr. Michael gao has not had any more diarrhea, just passed some small little mucousy stools. Patient usually sle eps in the morning and wakes up after lunch and at times he may be restless and at times little agita nessa, but usually able to be redirected. Physical therapy is still trying to work with him. Sometime s he is able, other times not at all. Visited with his and she is hunting the whole region for adequate nursing homes that she thinks will be good for Jcarlos and also affordable. She has been very frustrated and upset that she is not going to be able to take care of him and that he will end up in a longterm with something that he never wanted. OBJECTIVE: GENERAL: Patient is up in a Dayan chair. He is sleeping. He looks restful. VITAL SIGNS: His temperature is 98.4, pulse 87, respirations 22, O2 sat 95% on room air, blood press ure 127/72. His weight is 117, down from an admission weight of 123. LUNGS: Clear. HEART: Regular rate. ASSESSMENT: 1. Severe weakness. A. Presently bed confined. B. Etiology, secondary to repeated hospitalizations. C. Also secondary to recent Clostridium difficile colitis. D. Tolerating sitting up in a chair as of 07/11/2017. E. Continued weakness requiring total care. At times, able to work a little with physical thera py. Other times, he is sleeping and not able to work with therapist as of 07/14/2017. 2. Recent multiple hospitalizations at [facility]. A. 05/10/2017 until 05/22/2017 for septic shock from urinary tract infection with a left uretera l stone causing a hydroureter and hydronephrosis requiring emergent percutaneous nephrostomy tu be and ureteroscopic stone basket extraction. B. Hospitalized from 06/02/2017 until 06/06/2017 for Clostridium difficile colitis. C. Hospitalized at [facility] from 06/13/2017 until 06/20/2017 for Clostridium diffici le colitis and altered mental status. 3. Advanced Parkinson's disease. A. Complicated by Parkinson's dementia. 1. Complicated by episodes of increased restlessness agitation, usually able to be redirecte d as of 07/14/2017. B. Complicated by dysphagia. C. Complicated by severe weakness. D. Complicated by high fall risk. E. Unchanged as of 07/10/2017. 4. Hypertension. 5. Chronic atrial fibrillation. A. Rate controlled. B. Status post pacemaker placement. 6. Constipation. 7. Code status: DNR. 8. Benign prostatic hypertrophy. 9. Recent Clostridium difficile colitis. A. Treated with 10-day course of vancomycin 125 mg q.i.d. beginning on 06/06/2017 and completing on 06/19/2017. B. 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 1. Resolving as of 07/14/2017. 10. Urine culture growing E. coli, colony count greater than 100,000, the patient is asymptomatic and running no fever. I suspect this is more colonization. PLAN: Continued efforts of physical therapy. Since patient usually able to be redirected, we will n ot add any new medications since this may only add to his lethargy and sleepiness. We will complete a 14-day course of the vancomycin that was started on 07/11/2017. The patient's , Mary is explo ring longterm in the area, but this has been difficult to find one that she is happy and financia lly and affordable.
[2017-07-14] MEDS ORDERED: Vancomycin HCl 25 MG/ML Oral ONE (13:12)
[2017-07-15] MEDS: Carbidopa/Levodopa CR 50-200 mg Tablet PO SCH ×5 (07:00→18:56)
[2017-07-15] MEDS: Floranex Packet PO SCH (08:47)
[2017-07-15] MEDS: Finasteride 5 MG TAB PO SCH (08:48)
[2017-07-15] MEDS: Senokot S 8.6-50 MG TAB PO SCH (08:48)
[2017-07-15] MEDS: Tamsulosin HCl 0.4 MG CAP PO SCH (08:48)
[2017-07-15] MEDS: Vancomycin HCl 25 MG/ML Oral PO SCH ×4 (08:49→20:08)
[2017-07-15] MEDS: RASAGILINE MESYLATE 1 MG PO SCH (08:49)
[2017-07-15] MEDS: Polyethylene Glycol 3350 17 GM Packet PO SCH (08:49)
[2017-07-16] MEDS: Carbidopa/Levodopa CR 50-200 mg Tablet PO SCH ×5 (07:05→18:51)
[2017-07-16] MEDS: Floranex Packet PO SCH (08:25)
[2017-07-16] MEDS: Senokot S 8.6-50 MG TAB PO SCH (08:25)
[2017-07-16] MEDS: Polyethylene Glycol 3350 17 GM Packet PO SCH (08:25)
[2017-07-16] MEDS: Finasteride 5 MG TAB PO SCH (08:26)
[2017-07-16] MEDS: Tamsulosin HCl 0.4 MG CAP PO SCH (08:26)
[2017-07-16] MEDS: Vancomycin HCl 25 MG/ML Oral PO SCH ×4 (08:27→20:27)
[2017-07-16] MEDS: RASAGILINE MESYLATE 1 MG PO SCH (08:27)
--- NOTE | 2017-07-16 15:04 | PRG ---
DATE OF SERVICE: 07/16/2017 SUBJECTIVE: The nurses said the patient still has periods where he is little more anxious and has pe riods at night where he will not sleep. This morning he is up in his Dayan chair. Nurses said he has episodes where he is more talkative and when his mind is good he will try to climb out of bed or karel n get out of his chair and walk unassisted. The patient is walking short distances with physical the rapy, but at that times he will get up and walk on his own unassisted. The patient has had no diarrh ea. OBJECTIVE: The patient is sitting up in his Dayan chair. He is alert, but tried to talk a little bit , but was then just a whisper and could not be understood. His temperature is 97.2, pulse 76, respir ations 18, O2 saturation 97%, blood pressure 158/69. Lungs are clear. Heart, regular rate. ASSESSMENT: 1. Severe weakness. A. Presently bed confined. B. Etiology, secondary to repeated hospitalizations. C. Also secondary to recent Clostridium difficile colitis. D. Tolerating sitting up in a chair as of 07/11/2017. E. Improved. The patient has times where he is more awake and alert where he will get up and wa lk unassisted, other times he is completely dependent for assistance with movement and transfer. This seemed to be all secondary to his advanced Parkinson's as of 07/16/2017. 2. Recent multiple hospitalizations at [facility]. A. 05/10/2017 until 05/22/2017 for septic shock from urinary tract infection with a left uretera l stone causing a hydroureter and hydronephrosis requiring emergent percutaneous nephrostomy tu be and ureteroscopic stone basket extraction. B. Hospitalized from 06/02/2017 until 06/06/2017 for Clostridium difficile colitis. C. Hospitalized at [facility] from 06/13/2017 until 06/20/2017 for Clostridium diffici le colitis and altered mental status. 3. Advanced Parkinson's disease. A. Complicated by Parkinson's dementia. 1. Complicated by episodes of increased restlessness agitation, usually able to be redirecte d as of 07/14/2017. B. Complicated by dysphagia. C. Complicated by severe weakness. D. Complicated by high fall risk. E. Unchanged as of 07/10/2017. 4. Hypertension. 5. Chronic atrial fibrillation. A. Rate controlled. B. Status post pacemaker placement. 6. Constipation. 7. Code status: DNR. 8. Benign prostatic hypertrophy. 9. Recent Clostridium difficile colitis. A. Treated with 10-day course of vancomycin 125 mg q.i.d. beginning on 06/06/2017 and completing on 06/19/2017. B. 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 1. Resolved as of 07/16/2017. On a 14-day course of vancomycin started on 07/09/2017. 10. Urine culture growing E. coli, colony count greater than 100,000, the patient is asymptomatic and running no fever. I suspect this is more colonization. PLAN: Continue physical therapy. I visited with the patient's recently and she is exploring [facility] homes in this area for eventual placement.
[2017-07-17] MEDS: Carbidopa/Levodopa CR 50-200 mg Tablet PO SCH ×5 (07:27→19:00)
[2017-07-17] MEDS ORDERED: Budesonide 0.25 MG/2 ML NEB ONE (07:39)
[2017-07-17] MEDS: Polyethylene Glycol 3350 17 GM Packet PO SCH (08:15)
[2017-07-17] MEDS: Tamsulosin HCl 0.4 MG CAP PO SCH (08:15)
[2017-07-17] MEDS: Senokot S 8.6-50 MG TAB PO SCH (08:15)
[2017-07-17] MEDS: Finasteride 5 MG TAB PO SCH (08:15)
[2017-07-17] MEDS: Floranex Packet PO SCH (08:15)
[2017-07-17] MEDS: Vancomycin HCl 25 MG/ML Oral PO SCH ×4 (08:16→20:05)
[2017-07-17] MEDS: RASAGILINE MESYLATE 1 MG PO SCH (08:16)
[2017-07-17] MEDS: Acetaminophen 325 MG TAB PO PRN (16:29)
[2017-07-18] MEDS: Carbidopa/Levodopa CR 50-200 mg Tablet PO SCH ×5 (06:59→18:56)
[2017-07-18] MEDS: Floranex Packet PO SCH (08:51)
[2017-07-18] MEDS: Tamsulosin HCl 0.4 MG CAP PO SCH (08:52)
[2017-07-18] MEDS: Polyethylene Glycol 3350 17 GM Packet PO SCH (08:52)
[2017-07-18] MEDS: Senokot S 8.6-50 MG TAB PO SCH (08:52)
[2017-07-18] MEDS: RASAGILINE MESYLATE 1 MG PO SCH (08:52)
[2017-07-18] MEDS: Vancomycin HCl 25 MG/ML Oral PO SCH ×4 (08:52→20:33)
[2017-07-18] MEDS: Finasteride 5 MG TAB PO SCH (08:52)
--- NOTE | 2017-07-18 13:01 | PRG ---
DATE OF SERVICE: 07/18/2017 SUBJECTIVE: Nurses report no change. The patient has been eating better. OBJECTIVE: The patient is sitting up in a Dayan chair. He was alert, he had just eaten his breakfast . He is able to move around in the chair with no assistance. He appears very comfortable in no dist ress. His temperature is 97.9, pulse 80, respirations 16, O2 sat 100% on room air, blood pressure 14 4/73. His lungs are clear. Heart, regular rate. His weight is stable at 116. Extremities, no dylon a. ASSESSMENT: 1. Severe weakness. A. Presently bed confined. B. Etiology, secondary to repeated hospitalizations. C. Also secondary to recent Clostridium difficile colitis. D. Tolerating sitting up in a chair as of 07/11/2017. E. A little Improved as of 07/18/2017. 2. Recent multiple hospitalizations at [facility]. A. 05/10/2017 until 05/22/2017 for septic shock from urinary tract infection with a left uretera l stone causing a hydroureter and hydronephrosis requiring emergent percutaneous nephrostomy tu be and ureteroscopic stone basket extraction. B. Hospitalized from 06/02/2017 until 06/06/2017 for Clostridium difficile colitis. C. Hospitalized at [facility] from 06/13/2017 until 06/20/2017 for Clostridium diffici le colitis and altered mental status. 3. Advanced Parkinson's disease. A. Complicated by Parkinson's dementia. 1. Complicated by episodes of increased restlessness and agitation that is able to be redire cted as of 07/18/2017. B. Complicated by dysphagia. C. Complicated by severe weakness. D. Complicated by high fall risk. E. Unchanged as of 07/10/2017. 4. Hypertension. 5. Chronic atrial fibrillation. A. Rate controlled. B. Status post pacemaker placement. 6. Constipation. 7. Code status: DNR. 8. Benign prostatic hypertrophy. 9. Recent Clostridium difficile colitis. A. Treated with 10-day course of vancomycin 125 mg q.i.d. beginning on 06/06/2017 and completing on 06/19/2017. B. 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 1. Resolved as of 07/16/2017. On day 8 of 14-day course of vancomycin as of 07/18/2017. 10. Urine culture growing E. coli, colony count greater than 100,000, the patient is asymptomatic and running no fever. I suspect this is more colonization. PLAN: Continue vancomycin. Continue PT. His is still investigating senior living placement.
[2017-07-19] MEDS: Carbidopa/Levodopa CR 50-200 mg Tablet PO SCH ×5 (07:33→19:58)
[2017-07-19] MEDS: Floranex Packet PO SCH (07:33)
[2017-07-19] MEDS: Finasteride 5 MG TAB PO SCH (07:33)
[2017-07-19] MEDS: Polyethylene Glycol 3350 17 GM Packet PO SCH (07:34)
[2017-07-19] MEDS: Senokot S 8.6-50 MG TAB PO SCH (07:34)
[2017-07-19] MEDS: Tamsulosin HCl 0.4 MG CAP PO SCH (07:34)
[2017-07-19] MEDS: Vancomycin HCl 25 MG/ML Oral PO SCH ×4 (07:35→20:31)
[2017-07-19] MEDS: RASAGILINE MESYLATE 1 MG PO SCH (07:35)
[2017-07-19] MEDS ORDERED: Vancomycin HCl 25 MG/ML Oral ONE (20:29)
[2017-07-20] MEDS: Floranex Packet PO SCH (08:17)
[2017-07-20] MEDS: Carbidopa/Levodopa CR 50-200 mg Tablet PO SCH ×5 (08:17→19:32)
[2017-07-20] MEDS: Senokot S 8.6-50 MG TAB PO SCH (08:18)
[2017-07-20] MEDS: Tamsulosin HCl 0.4 MG CAP PO SCH (08:18)
[2017-07-20] MEDS: Polyethylene Glycol 3350 17 GM Packet PO SCH (08:18)
[2017-07-20] MEDS: RASAGILINE MESYLATE 1 MG PO SCH (08:18)
[2017-07-20] MEDS: Finasteride 5 MG TAB PO SCH (08:18)
[2017-07-20] MEDS: Vancomycin HCl 25 MG/ML Oral PO SCH ×4 (08:19→20:19)
[2017-07-21] MEDS: Carbidopa/Levodopa CR 50-200 mg Tablet PO SCH ×5 (07:28→18:17)
[2017-07-21] MEDS: Finasteride 5 MG TAB PO SCH (09:56)
[2017-07-21] MEDS: Floranex Packet PO SCH (09:56)
[2017-07-21] MEDS: RASAGILINE MESYLATE 1 MG PO SCH (09:57)
[2017-07-21] MEDS: Senokot S 8.6-50 MG TAB PO SCH (09:58)
[2017-07-21] MEDS: Polyethylene Glycol 3350 17 GM Packet PO SCH (09:58)
[2017-07-21] MEDS: Tamsulosin HCl 0.4 MG CAP PO SCH (09:59)
[2017-07-21] MEDS: Vancomycin HCl 25 MG/ML Oral PO SCH ×4 (10:03→21:06)
--- NOTE | 2017-07-21 14:04 | PRG ---
DATE OF SERVICE: 07/21/2017 SUBJECTIVE: The patient was sleeping this morning. Nurses have not noted any particular change. He is not having any diarrhea. His is with him this morning, she is still trying to decide on [facility] home placement for him. OBJECTIVE: The patient is sleeping in bed. He appears comfortable. His temp 98.4, pulse 78, respir ations 16, O2 saturation 97%, blood pressure 127/68. Lungs are clear. Heart, regular rate. Extremi ties, no edema. ASSESSMENT: 1. Severe weakness. A. Presently bed confined. B. Etiology, secondary to repeated hospitalizations. C. Also secondary to recent Clostridium difficile colitis. D. Tolerating sitting up in a chair as of 07/11/2017. E. A little Improved as of 07/21/2017. 2. Recent multiple hospitalizations at [facility]. A. 05/10/2017 until 05/22/2017 for septic shock from urinary tract infection with a left uretera l stone causing a hydroureter and hydronephrosis requiring emergent percutaneous nephrostomy tu be and ureteroscopic stone basket extraction. B. Hospitalized from 06/02/2017 until 06/06/2017 for Clostridium difficile colitis. C. Hospitalized at [facility] from 06/13/2017 until 06/20/2017 for Clostridium diffici le colitis and altered mental status. 3. Advanced Parkinson's disease. A. Complicated by Parkinson's dementia. 1. Complicated by episodes of increased restlessness and agitation that is able to be redire cted as of 07/21/2017. B. Complicated by dysphagia. C. Complicated by severe weakness. D. Complicated by high fall risk. E. Unchanged as of 07/21/2017. 4. Hypertension. 5. Chronic atrial fibrillation. A. Rate controlled. B. Status post pacemaker placement. 6. Constipation. 7. Code status: DNR. 8. Benign prostatic hypertrophy. 9. Recent Clostridium difficile colitis. A. Treated with 10-day course of vancomycin 125 mg q.i.d. beginning on 06/06/2017 and completing on 06/19/2017. B. 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 1. Symptomatically resolved as of 07/16/2017. On day 11 of 14-day course of oral vancomycin . 10. Urine culture growing E. coli, colony count greater than 100,000, the patient is asymptomatic and running no fever. I suspect this is more colonization. PLAN: Complete the 14-day course of vancomycin. Continue physical therapy. Upon completion of his vancomycin the patient can be transferred to a [facility] assuming his has this arrangement giovanna victoria
[2017-07-22 04:46] VITALS: BMI 17.6
[2017-07-22] MEDS: Carbidopa/Levodopa CR 50-200 mg Tablet PO SCH ×5 (07:05→21:35)
[2017-07-22] MEDS: Floranex Packet PO SCH (08:13)
[2017-07-22] MEDS: RASAGILINE MESYLATE 1 MG PO SCH (08:13)
[2017-07-22] MEDS: Vancomycin HCl 25 MG/ML Oral PO SCH ×4 (08:14→21:36)
[2017-07-22] MEDS: Polyethylene Glycol 3350 17 GM Packet PO SCH (08:14)
[2017-07-22] MEDS: Senokot S 8.6-50 MG TAB PO SCH (08:14)
[2017-07-22] MEDS: Tamsulosin HCl 0.4 MG CAP PO SCH (08:14)
[2017-07-22] MEDS: Finasteride 5 MG TAB PO SCH (08:14)
[2017-07-23] MEDS: Carbidopa/Levodopa CR 50-200 mg Tablet PO SCH ×5 (07:02→19:45)
[2017-07-23] MEDS: Tamsulosin HCl 0.4 MG CAP PO SCH (08:32)
[2017-07-23] MEDS: Floranex Packet PO SCH (08:33)
[2017-07-23] MEDS: Finasteride 5 MG TAB PO SCH (08:33)
[2017-07-23] MEDS: RASAGILINE MESYLATE 1 MG PO SCH (08:33)
[2017-07-23] MEDS: Polyethylene Glycol 3350 17 GM Packet PO SCH (08:34)
[2017-07-23] MEDS: Vancomycin HCl 25 MG/ML Oral PO SCH ×4 (08:34→20:34)
[2017-07-23] MEDS: Senokot S 8.6-50 MG TAB PO SCH (08:34)
--- NOTE | 2017-07-23 10:07 | PRG ---
DATE OF SERVICE: 07/23/2017 SUBJECTIVE: The patient has been doing better. He has been more awake. He has been eating better. At times he is able to feed himself. He have been at times more talkative where he is able to be un derstood. Yesterday he walked up to 10 feet. He has had other days that he has walked up to 300 fee t, but this is very intermittent and dependent upon his mental status. OBJECTIVE: The patient is sitting up in his geriatric chair. He is alert and moving himself around in the chair. He does not appear in any acute distress. He is more talkative and can understand a l ittle bit of what he says. His vital signs shows a temperature of 97.1, pulse 80, respirations 18, O 2 sat 97% on room air, blood pressure 130/66. Lungs are clear. Heart, regular rate. Extremities, n o edema. ASSESSMENT: 1. Severe weakness. A. Presently bed confined. B. Etiology, secondary to repeated hospitalizations. C. Also secondary to recent Clostridium difficile colitis. D. Tolerating sitting up in a chair as of 07/11/2017. E. Improved. The patient has intermittent days where he is able to do much more as of 8. 2. Recent multiple hospitalizations at [facility]. A. 05/10/2017 until 05/22/2017 for septic shock from urinary tract infection with a left uretera l stone causing a hydroureter and hydronephrosis requiring emergent percutaneous nephrostomy tu be and ureteroscopic stone basket extraction. B. Hospitalized from 06/02/2017 until 06/06/2017 for Clostridium difficile colitis. C. Hospitalized at [facility] from 06/13/2017 until 06/20/2017 for Clostridium diffici le colitis and altered mental status. 3. Advanced Parkinson's disease. A. Complicated by Parkinson's dementia. 1. Stable as of 07/23/2017. B. Complicated by dysphagia. C. Complicated by severe weakness. D. Complicated by high fall risk. 4. Hypertension. 5. Chronic atrial fibrillation. A. Rate controlled. B. Status post pacemaker placement. 6. Constipation. 7. Code status: DNR. 8. Benign prostatic hypertrophy. 9. Recent Clostridium difficile colitis. A. Treated with 10-day course of vancomycin 125 mg q.i.d. beginning on 06/06/2017 and completing on 06/19/2017. B. 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 1. Symptomatically resolved. On day 13 of 14-day course of oral vancomycin as of 07/23/2017 . 10. Urine culture growing E. coli, colony count greater than 100,000, the patient is asymptomatic and running no fever. I suspect this is more colonization. PLAN: Overall the patient is better. He is having no diarrhea. He is eating better, and some days he is able to do much more with physical therapy and some days he is able to even get up on his own, has to be carefully watched. Continue physical therapy.
[2017-07-23] MEDS ORDERED: Mag-Al Plus 1200 MG/1200 MG/120 MG/30 ML UDCUP PO PRN (21:25)
[2017-07-24] MEDS: Carbidopa/Levodopa CR 50-200 mg Tablet PO SCH ×5 (08:06→19:04)
[2017-07-24] MEDS: RASAGILINE MESYLATE 1 MG PO SCH (08:06)
[2017-07-24] MEDS: Floranex Packet PO SCH (08:06)
[2017-07-24] MEDS: Senokot S 8.6-50 MG TAB PO SCH (08:06)
[2017-07-24] MEDS: Finasteride 5 MG TAB PO SCH (08:06)
[2017-07-24] MEDS: Tamsulosin HCl 0.4 MG CAP PO SCH (08:06)
[2017-07-24] MEDS: Vancomycin HCl 25 MG/ML Oral PO SCH ×4 (08:07→21:09)
[2017-07-24] MEDS: Polyethylene Glycol 3350 17 GM Packet PO SCH (08:07)
[2017-07-25] MEDS: Carbidopa/Levodopa CR 50-200 mg Tablet PO SCH ×5 (07:10→19:04)
[2017-07-25] MEDS: Tamsulosin HCl 0.4 MG CAP PO SCH (09:36)
[2017-07-25] MEDS: Finasteride 5 MG TAB PO SCH (09:36)
[2017-07-25] MEDS: RASAGILINE MESYLATE 1 MG PO SCH (09:36)
[2017-07-25] MEDS: Senokot S 8.6-50 MG TAB PO SCH (09:36)
[2017-07-25] MEDS: Floranex Packet PO SCH (09:36)
[2017-07-25] MEDS: Polyethylene Glycol 3350 17 GM Packet PO SCH (09:36)
--- NOTE | 2017-07-25 14:38 | PRG ---
DATE OF SERVICE: 07/25/2017 SUBJECTIVE: Nurses said patient is doing better. At times, he eats very well and even able to feed himself. Other times, he needs assistance. At times, he is able physically to do more. His is still locked in on a group home. Seems the cost to the homes are biggest blockade. She is going to check with the local nursing homes again here. Nurses said the patient has not had any diarrhea a nd he has completed a 14-day course of the vancomycin. OBJECTIVE: The patient is lying in bed, asleep, appears comfortable. His temp 96.8, pulse 80, respi rations 16, blood pressure 148/66, O2 sat 100% on room air. Lungs are clear. Heart, regular rate. ASSESSMENT: 1. Severe weakness. A. Presently bed confined. B. Etiology, secondary to repeated hospitalizations. C. Also secondary to recent Clostridium difficile colitis. D. Tolerating sitting up in a chair as of 07/11/2017. E. Improved. The patient has intermittent days where he is able to do much more as of 8. 2. Recent multiple hospitalizations at [facility]. A. 05/10/2017 until 05/22/2017 for septic shock from urinary tract infection with a left uretera l stone causing a hydroureter and hydronephrosis requiring emergent percutaneous nephrostomy tu be and ureteroscopic stone basket extraction. B. Hospitalized from 06/02/2017 until 06/06/2017 for Clostridium difficile colitis. C. Hospitalized at [facility] from 06/13/2017 until 06/20/2017 for Clostridium diffici le colitis and altered mental status. 3. Advanced Parkinson's disease. A. Complicated by Parkinson's dementia. 1. Stable as of 07/23/2017. B. Complicated by dysphagia. C. Complicated by severe weakness. D. Complicated by high fall risk. 4. Hypertension. 5. Chronic atrial fibrillation. A. Rate controlled. B. Status post pacemaker placement. 6. Constipation. 7. Code status: DNR. 8. Benign prostatic hypertrophy. 9. Recent Clostridium difficile colitis. A. Treated with 10-day course of vancomycin 125 mg q.i.d. beginning on 06/06/2017 and completing on 06/19/2017. B. 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 1. Resolved. Has completed a 14-day course of vancomycin as of 07/25/2017. 10. Urine culture growing E. coli, colony count greater than 100,000, the patient is asymptomatic and running no fever. I suspect this is more colonization. PLAN: Continue physical therapy. still will again visit with other group home. Once this is set patient could be dismissed to the group home.
[2017-07-26] MEDS: Carbidopa/Levodopa CR 50-200 mg Tablet PO SCH ×5 (07:29→18:59)
[2017-07-26] MEDS: Polyethylene Glycol 3350 17 GM Packet PO SCH (09:00)
[2017-07-26] MEDS: RASAGILINE MESYLATE 1 MG PO SCH (09:00)
[2017-07-26] MEDS: Floranex Packet PO SCH (09:00)
[2017-07-26] MEDS: Finasteride 5 MG TAB PO SCH (09:01)
[2017-07-26] MEDS: Senokot S 8.6-50 MG TAB PO SCH (09:01)
[2017-07-26] MEDS: Tamsulosin HCl 0.4 MG CAP PO SCH (09:02)
[2017-07-27] MEDS: Carbidopa/Levodopa CR 50-200 mg Tablet PO SCH ×5 (07:30→19:25)
[2017-07-27] MEDS: Floranex Packet PO SCH (08:31)
[2017-07-27] MEDS: Tamsulosin HCl 0.4 MG CAP PO SCH (08:31)
[2017-07-27] MEDS: RASAGILINE MESYLATE 1 MG PO SCH (08:31)
[2017-07-27] MEDS: Polyethylene Glycol 3350 17 GM Packet PO SCH (08:31)
[2017-07-27] MEDS: Finasteride 5 MG TAB PO SCH (08:32)
[2017-07-27] MEDS: Senokot S 8.6-50 MG TAB PO SCH (08:32)
[2017-07-28] MEDS: Carbidopa/Levodopa CR 50-200 mg Tablet PO SCH ×4 (06:11→16:23)
[2017-07-28 07:04] VITALS: BP 136/73; TEMP 97.3
[2017-07-28] MEDS: Finasteride 5 MG TAB PO SCH (08:49)
[2017-07-28] MEDS: Floranex Packet PO SCH (08:49)
[2017-07-28] MEDS: Senokot S 8.6-50 MG TAB PO SCH (08:49)
[2017-07-28] MEDS: Tamsulosin HCl 0.4 MG CAP PO SCH (08:49)
[2017-07-28] MEDS: RASAGILINE MESYLATE 1 MG PO SCH (08:50)
[2017-07-28] MEDS: Polyethylene Glycol 3350 17 GM Packet PO SCH (08:51)
--- NOTE | 2017-07-28 15:28 | DIS ---
DATE OF ADMISSION: 06/20/2017 DATE OF DISCHARGE: 07/28/2017 FINAL DIAGNOSES: 1. Severe weakness. A. Marked improvement. Patient is able to help with transfer and walk with rolling walker with standby assistance as of 07/28/2017. B. Etiology, secondary to repeated hospitalizations. C. Also secondary to recent Clostridium difficile colitis. D. Tolerating sitting up in a chair as of 07/11/2017. E. Improved. The patient has intermittent days where he is able to do much more as of 8. 2. Recent multiple hospitalizations at [facility]. A. 05/10/2017 until 05/22/2017 for septic shock from urinary tract infection with a left uretera l stone causing a hydroureter and hydronephrosis requiring emergent percutaneous nephrostomy tu be and ureteroscopic stone basket extraction. B. Hospitalized from 06/02/2017 until 06/06/2017 for Clostridium difficile colitis. C. Hospitalized at [facility] from 06/13/2017 until 06/20/2017 for Clostridium diffici le colitis and altered mental status. 3. Advanced Parkinson's disease. A. Complicated by Parkinson's dementia. 1. Stable as of 07/28/2017. B. Complicated by dysphagia, improved. C. Complicated by severe weakness, improved. D. Remains fall risk. 4. Hypertension. 5. Chronic atrial fibrillation. A. Rate controlled. B. Status post pacemaker placement. 6. Constipation. 7. Code status: DNR. 8. Benign prostatic hypertrophy. 9. Recent Clostridium difficile colitis. A. Treated with 10-day course of vancomycin 125 mg q.i.d. beginning on 06/06/2017 and completing on 06/19/2017. B. 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 1. Resolved. Has completed a 14-day course of vancomycin as of 07/25/2017. 10. Urine culture growing E. coli, colony count greater than 100,000, the patient is asymptomatic and running no fever. I suspect this is more colonization. SUMMARY: Patient is a 77-year-old white male who has a history of advanced Parkinson's disease initi ally diagnosed in 2001. This is complicated by Parkinson's dementia, dysphagia, weakness and fall ri sk. He also has hypertension, chronic atrial fibrillation. He is not a candidate for any anticoagul ation due to the fall risk. He also has a pacemaker. He has been living at home with his antonio limon as primary caregiver. Patient has required assistance with all of his ADLs and all his instrument al ADLs. The patient had been hospitalized at [facility] from (03:34) presenting wit h septic shock and altered mental status from urinary tract infection complicated by a left ureteral stone, hydronephrosis and hydroureter. The patient underwent emergent placement of a percutaneous ne phrostomy tube and later ureteroscopic stone basket extraction and later removal of the percutaneous nephrostomy. He had a temporary ureteral stent and grew group B strep and Enterococcus. He was castro nessa with IV antibiotics with eventual resolution. He had a temporary placement in [facility] for completion of the IV antibiotics and then required readmission and was sick from C. difficil e colitis and was treated with p.o. vancomycin on 06/06/2017, although diarrhea resolved and he compl eted the 14-day course of vancomycin. He was left extremely weak and requiring total care. He was t ransferred to [facility] on 06/20/2017 to extended care for his severe weakness. At that time, he was clear of any diarrhea. HOSPITAL COURSE: Patient was very weak upon his admission, essentially bed confined. This was all s econdary to his repeated hospitalization, recent C. difficile colitis, the patient has advanced Parki nson's disease. The patient was left on his usual medication and was placed on his Sinemet CR 5 time s a day as he receives at home that is 1 tablet at 7:00 am, 10:00 a.m., 1:00 p.m., 4:00 p.m. and 7:00 p.m. Patient's condition gradually improved. He began working with physical therapy. The patient is tolerating sitting up in a chair and began walking with his dementia. He had periods where he was much more alert and interactive and other periods where he was very sleepy and withdrawn. The patie nt again developed severe diarrhea and was retested for C. diff and stools were positive for C. diff toxin and antigen. He was started on initially IV Flagyl on 07/09/2017 because he was not able to ta ke the oral medication. With cautious IV hydration and IV vancomycin, he markedly improved and was s witched to oral vancomycin. He was treated with vancomycin 125 mg q.i.d. for a 14-day course that he completed on 07/25/2017. His diarrhea had completely resolved. His overall condition had improved. He was eating good. He was again participating with physical therapy and was able to assist with cj white and the nurses had to watch him at times, he would try to get up on his own and he remained f all risk with Parkinson's disease. The patient though did very well with walking with his walker and was assistance standby to him. Patient was not treated with any antibiotics other than oral vancomy sonido during the hospitalization. By 07/28/2017, his condition improved. He was having no diarrhea. He was eating good. He was able to assist with transfer was walking along the hallways with his walk er and with assistance of Physical Therapy. His condition has improved markedly from his admission w here he was essentially bed confined. C. diff colitis had resolved. His level of care though exceed s what his could provide in the home. She has diligently hunted for nursing homes in this [facility] and has settled down in [facility]. He will be discharged to [facility] on 07/28/2017. There, physical therapy will continue to work with her. The patient is very frail and with his advanced Parkinson's disease, I am afraid that his prognosis remains guarded and expecta tion is that he will probably have problems again in the future. This has been his history of repeat ed problems over the last few months. Patient does have DNR code status. DIET: Regular diet, mechanical soft (11:20) sauces and gravy. ACTIVITIES: Up in a chair. Physical therapy and occupational therapy will work with him. The patie nt is a high fall risk. Supplement with Ensure Enlive or health shakes twice today and as desired. MEDICATIONS: Acetaminophen 325 mg 2 every 4 hours as needed, Floranex 1 gram daily, Maalox 30 mL karel ry 4 hours as needed for indigestion, aspirin 81 mg daily, finasteride 5 mg daily, MiraLax 17 grams i n 8 ounces water daily, Senokot-S 1 daily, tamsulosin 0.4 mg daily, rasagiline 1 mg daily, Sinemet CR 25/100 1 tablet at 7:00 a.m., 10:00 a.m., 1:00 p.m., 4:00 p.m. and 7:00 p.m. daily. FOLLOW UP: The patient will be seen within a week. CODE STATUS: DNR.
== END 2017-07-28 16:30 | DRG 948 ==
LOC: MADMS 18:12
PROVIDERS: ADMIT Family Medicine; ATTEND Family Medicine
DX: R53.1 Weakness (principal); A04.71 Enterocolitis due to Clostridium difficile, recurrent; G20 Parkinson's disease; R13.10 Dysphagia, unspecified; I48.2 Chronic atrial fibrillation; F02.80 Dementia in other diseases classified elsewhere, unspecified severity, without behavioral disturbance, psychotic disturbance, mood disturbance, and anxiety; Z66 Do not resuscitate; I10 Essential (primary) hypertension; K59.00 Constipation, unspecified; N40.0 Benign prostatic hyperplasia without lower urinary tract symptoms; K59.09 Other constipation; Z74.01 Bed confinement status; Z22.39 Carrier of other specified bacterial diseases; Z87.442 Personal history of urinary calculi; Z88.7 Allergy status to serum and vaccine; Z79.82 Long term (current) use of aspirin; Z79.899 Other long term (current) drug therapy; Z95.0 Presence of cardiac pacemaker
CPT/HCPCS: 36415; 36416; 80048; 80053; 81001; 85007; 85025; 85027; 87077; 87086; 87186; 87324; 87449; G8978-GP-CK; G8979-GP-CJ; G8981-GP-CM; G8982-GP-CK; G8987-GO-CL; G8988-GO-CJ; J7042; J7626

== ENCOUNTER 2017-08-02 13:57 | Emergency (ER) | payer MEDICARE, BC ==
[2017-08-02 14:35] LABS: #Basophils 0.1 thou/uL (0.0-0.2); #Lymphocytes 1.4 thou/uL (1.20-3.40); #Monocytes 0.5 thou/uL (0.11-0.59); #Neutrophils 5.9 thou/uL (1.40-6.50); %Basophils 0.9 % (0.0-1.0); %Eosinophils 0.5 % (0.0-10.0); %Lymphocytes 17.8 % (21.0-51.0); %Monocytes 6.6 % (0.0-10.0); %Neutrophils 74.3 % (42.0-75.0); Hemoglobin 13.4 g/dL (14.0-18.0); Mean Corpuscular Volume 87.9 fl (80.0-94.0); Mean Platelet Volume 6.9 fL (7.4-10.4); Platelet Count 180 thou/uL (130-400); RBC Distribution Width 13.6 % (11.5-14.5); Red Blood Cell (RBC) Count 4.61 mill/uL (4.70-6.10); White Blood Cell (WBC) Count 7.9 thou/uL (4.8-10.8)
[2017-08-02 14:47] LABS: Anion Gap 18 mmol/L (10-20); BUN (Urea Nitrogen) 20 mg/dL (8.4-25.7); Calc. Creatinine Clearance 0 mL/min (70-130); Calcium 8.9 mg/dL (7.8-10.44); Carbon Dioxide 23 mmol/L (23-31); Chloride 103 mmol/L (98-107); Estimated GFR-MDRD 73; Glucose 105 mg/dL (83-110); Potassium 4.6 mmol/L (3.5-5.1); Sodium 139 mmol/L (136-145)
[2017-08-02] MEDS ORDERED: Ketorolac Tromethamine 30 MG/ML VIAL ONE (14:54)
== END 2017-08-02 17:15 ==
LOC: MADERS 13:57
DX: S50.01XA Contusion of right elbow, initial encounter (principal); I48.91 Unspecified atrial fibrillation; G20 Parkinson's disease; I10 Essential (primary) hypertension; F03.90 Unspecified dementia, unspecified severity, without behavioral disturbance, psychotic disturbance, mood disturbance, and anxiety; W19.XXXA Unspecified fall, initial encounter
CPT/HCPCS: 80048; 85025; 96361; 96374; J1885; J7050

== ENCOUNTER 2017-08-16 10:51 | Outpatient (CLI) | payer MEDICARE, BC | END 2017-08-16 10:52 | disposition home or self-care (01) | LOC: MADLAB 10:51 | PROVIDERS: ATTEND Family Medicine | DX: A04.72 Enterocolitis due to Clostridium difficile, not specified as recurrent (principal) | CPT/HCPCS: 87324; 87449 ==